=== PATIENT | female | born 1955 | race Caucasian/White ===

== ENCOUNTER 2020-11-06 15:11 | Observation (INO) ==
[2020-11-06 16:28] LABS: Basophils # (auto) 0.01 K/uL (0-0.2); Basophils % (auto) 0.1 %; Eosinophils # (auto) 0.11 K/uL (0-0.5); Hematocrit (blood only) 44.7 % (37-47); Immature Granulocytes # (auto) 0.02 K/uL (0.00-0.02); Immature Granulocytes % (auto) 0.2 %; Lymphocytes # (auto) 1.62 K/uL (1.2-3.4); Lymphocytes % (auto) 14.2 %; Mean Corpuscular Hemoglobin 31.4 pg (25-34); Mean Corpuscular Hgb Conc 33.6 g/dL (32-36); Mean Corpuscular Volume 93.5 fL (80-100); Monocytes # (auto) 0.63 K/uL (0.11-0.59); Monocytes % (auto) 5.5 %; Neutrophils # (auto) 9.01 K/uL (1.4-6.5); Platelet Count 275 K/uL (130-400); RDW Coefficient of Variation 13.2 % (11.5-14.5); RDW Standard Deviation 45.6 fL (36.4-46.3); Red Blood Count 4.78 M/uL (4.2-5.4)
[2020-11-06 16:46] LABS: Albumin Level 3.8 gm/dl (3.4-5.0); BUN Creatinine Ratio 24.4 (10-20); Creatinine Clr Calc Pharmacy 66.8 ml/min; Est GFR (African American) 109.5 ml/min; Est GFR (Non-African American) 94.5 ml/min
[2020-11-06 16:49] LABS: Albumin Globulin Ratio 1.1 (0.9-2); Bilirubin,Total 1.6 mg/dl (0.2-1); Globulin 3.6 gm/dl (2.5-4.0); Total Protein 7.4 gm/dl (6.4-8.2)
[2020-11-06] MEDS ORDERED: ONDANSETRON INJ 2 MG/ML 2 ML VIAL IV STA ×2 (17:19→20:22)
[2020-11-06] MEDS ORDERED: SODIUM CHLORIDE 0.9% 1000ML 1,000 ML IV ONE (17:24)
--- NOTE | 2020-11-06 17:24 | Emergency Department Note ---
Impression & Plan Nausea & vomiting, Epigastric abdominal pain ED Provider Note INFORMANT: Patient ED PROVIDER(S): Glenn Arthur MD CHIEF COMPLAINT: Abdominal pain PLAN: Disposition: Admitted Condition: Good Outpatient prescription management: none Referral: None MEDICAL DECISION MAKING: Patient presented to emergency room complaining of upper abdominal pain and nausea. She was hydrated. She was given Zofran. She was treated with IV Dilaudid. She did feel better with this but did require second dose. Patient had a mild leukocytosis and elevated bilirubin. Remainder of labs unremarkable. Twelve-lead ECG did show sinus bradycardia. No ischemia. She underwent CT imaging which raised some concerns about possible ileus versus early obstruction. The patient did have an episode of nausea and vomiting and was given a second dose of Zofran. Gallbladder ultrasound revealed sludge but no evidence of acute cholecystitis. Because of the findings on CT further management in the hospital was deemed appropriate. Consultation was made with Dr. Jaylon Massey of the [facility] service. Patient was evaluated in the ER for further management. Triage Nursing notes reviewed and agree them. Vital Signs: reviewed and remarkable for no significant abnormalities Differential diagnosis: biliary pathology, Appendicitis, ovarian cyst,infections, diverticulitis, UTI, obstruction, mesenteric ischemia, aortic pathology, inflammatory bowel disease, renal colic, PUD, pancreatitis, hernia, volvulus, constipation, as well as other pathologies. Diagnostics interpreted by me: ECG: Twelve-lead ECG reveals sinus bradycardia 57 bpm. No evidence of ST elevation or depression. No PACs or PVCs. Normal QRS and axis. Cardiac Monitoring: Cardiac monitoring ordered by me: The patient was placed on continuous cardiac monitoring and observed. It revealed a normal sinus rhythm at 62 beats per minute without ectopy or evidence of dysrhythmia. Imaging studies: CT imaging showed possible ileus/enteritis versus early SBO per radiology. Gallbladder ultrasound shows sludge without clear evidence of cholecystitis. HPI: The patient is a 65 year old female who presents to the Emergency Room with complaints of epigastric achy constant abdominal pain that radiates to her back. This started 3 days ago and is worsening. The patient also notes the following associated symptoms, nausea and vomiting. The patient has found no relieving factors. Current pain is rated as 7/10. Patient went to urgent care and was referred to the emergency department. Pt denies LOC, headache, fevers, chills, diaphoresis, visual changes, neck pain, chest pain, breathing difficulties, melena, hematochezia, urinary symptoms, numbness, weakness, lymphadenopathy, rash, or other complaints. ROS: See above HPI for pertinent positives & negatives. A total of 10 systems reviewed and were otherwise negative. PAST MEDICAL HISTORY:See Below , migraines PAST SURGICAL HISTORY:See Below, cervical spine surgery FAMILY HISTORY:See Below, CAD, CVA SOCIAL HISTORY:See Below, HOME MEDICATIONS:See Below ALLERGIES:See Below VITALS:See Below PHYSICAL EXAMINATION: GENERAL: Awake, alert, uncomfortable-appearing, in no distress HENT: Normocephalic, atraumatic. Oropharynx unremarkable. EYES: Normal conjunctiva. Sclera non-icteric. NECK: Inspection normal. Non-tender. Supple. No nuchal rigidity. FROM. No masses. RESPIRATORY: Clear to auscultation. No wheezes. No rales. Normal respiratory effort. CARDIAC: Normal rate. Normal rhythm. No murmurs. No rubs. Extremities warm and well perfused. Pulses equal. No JVD. GI: Soft, non-distended. Epigastric tenderness to palpation. No rebound or guarding. No masses. RECTAL: Deferred. MUSCULOSKELETAL: Atraumatic. Chest examination reveals no tenderness. The back is symmetrical on inspection without obvious abnormality. There is no CVA tenderness to palpation. No joint edema. LOWER EXTREMITIES: Calves are equal size bilaterally and non-tender. No edema. No discoloration. NEURO: Normal sensorium. No sensory or motor deficits noted. SKIN: No rash or jaundice noted. Glenn Arthur MD Past Med/Surg History Medical History (Updated 11/06/20 @ 17:21 by Glenn Arthur MD) Acute ITP 1993> DUE TO WBC BEING TOO LOW> WAS ON PREDNISONE FOR A LONG TIME> NOW RESOLVED Migraine OCCASIONAL Slow to wake up after anesthesia Surgical History Fusion of spine C3,4,5> FULL ROM PER PATIENT History of arthroscopy BILAT SHOULDERS History of carpal tunnel release +ulnar nerve Right (12/2019) History of colonoscopy History of tooth extraction WISDOM TEETH Family History Father Diabetes Other No family history of adverse response to anesthesia Social History Smoking Status: Never smoker Second Hand Exposure: No; Hx Alcohol Use: Yes Alcohol type: beer, wine and hard liquor Hx Substance Use: No Preferred Language: [place] Communication Ability: Effective Back Tender [place] Required: No Beliefs That Will Affect Care: None Current Living Situation: Spouse Feels Safe at Home: Yes Assistive Devices: Glasses Allergies Allergies Allergy/AdvReac Type Severity Reaction Status Date / Time No Known Allergies Allergy Verified 11/06/20 18:06 Home Meds Home Medications Medication Instructions Recorded Confirmed Excedrin Migraine 1 tab PO Q6H PRN 12/19/19 11/06/20 ibuprofen 400 mg PO TID PRN 12/19/19 11/06/20 Results & Data (ED) Vital Signs Vital Signs - 24 hr 11/06/20 15:15 11/06/20 17:22 11/06/20 17:25 Temperature 36.6 C Temperature Source Skin Pulse Rate 64 62 65 Pulse Rate from SpO2 Sensor 65 67 Pulse Rhythm Regular Pulse Strength Normal Respiratory Rate 20 20 22 Respiratory Effort / Characteristics Non-Labored Spontaneous Respiratory Depth Normal Respiratory Pattern Regular Blood Pressure 125/73 132/71 Blood Pressure Mean 90 91 Pulse Oximetry 98 99 99 Oxygen Delivery Method Room Air Sepsis Recent Fever Within 48 Hours No Sepsis New/Unexplained Change in Mental Status N/A Sepsis Action Taken by Nursing No Action Required 11/06/20 17:30 11/06/20 18:00 11/06/20 18:40 Temperature Temperature Source Pulse Rate 79 62 65 Pulse Rate from SpO2 Sensor 82 62 63 Pulse Rhythm Pulse Strength Respiratory Rate 24 20 20 Respiratory Effort / Characteristics Respiratory Depth Respiratory Pattern Blood Pressure 160/71 H 128/78 Blood Pressure Mean 100 94 Pulse Oximetry 100 100 96 Oxygen Delivery Method Sepsis Recent Fever Within 48 Hours Sepsis New/Unexplained Change in Mental Status Sepsis Action Taken by Nursing 11/06/20 18:41 11/06/20 18:42 11/06/20 19:00 Temperature Temperature Source Pulse Rate 68 59 L 60 Pulse Rate from SpO2 Sensor 68 61 59 L Pulse Rhythm Pulse Strength Respiratory Rate 15 20 19 Respiratory Effort / Characteristics Respiratory Depth Respiratory Pattern Blood Pressure 115/60 115/66 Blood Pressure Mean 78 82 Pulse Oximetry 98 98 96 Oxygen Delivery Method Sepsis Recent Fever Within 48 Hours Sepsis New/Unexplained Change in Mental Status Sepsis Action Taken by Nursing 11/06/20 19:01 11/06/20 19:30 11/06/20 19:31 Temperature Temperature Source Pulse Rate 62 66 60 Pulse Rate from SpO2 Sensor 62 65 59 L Pulse Rhythm Pulse Strength Respiratory Rate 20 21 19 Respiratory Effort / Characteristics Respiratory Depth Respiratory Pattern Blood Pressure 103/59 L Blood Pressure Mean 73 Pulse Oximetry 95 96 96 Oxygen Delivery Method Sepsis Recent Fever Within 48 Hours Sepsis New/Unexplained Change in Mental Status Sepsis Action Taken by Nursing 11/06/20 20:00 11/06/20 20:07 11/06/20 20:30 Temperature Temperature Source Pulse Rate 72 70 72 Pulse Rate from SpO2 Sensor 69 69 70 Pulse Rhythm Pulse Strength Respiratory Rate 15 21 22 Respiratory Effort / Characteristics Respiratory Depth Respiratory Pattern Blood Pressure 98/50 L 127/62 125/65 Blood Pressure Mean 66 83 85 Pulse Oximetry 95 94 95 Oxygen Delivery Method Sepsis Recent Fever Within 48 Hours Sepsis New/Unexplained Change in Mental Status Sepsis Action Taken by Nursing 11/06/20 21:00 11/06/20 21:01 11/06/20 21:30 Temperature Temperature Source Pulse Rate 59 L 64 55 L Pulse Rate from SpO2 Sensor 59 L 64 54 L Pulse Rhythm Pulse Strength Respiratory Rate 19 17 20 Respiratory Effort / Characteristics Respiratory Depth Respiratory Pattern Blood Pressure 100/58 L 97/55 L Blood Pressure Mean 72 69 Pulse Oximetry 96 96 96 Oxygen Delivery Method Sepsis Recent Fever Within 48 Hours Sepsis New/Unexplained Change in Mental Status Sepsis Action Taken by Nursing 11/06/20 22:05 Temperature Temperature Source Pulse Rate 52 L Pulse Rate from SpO2 Sensor 51 L Pulse Rhythm Pulse Strength Respiratory Rate 15 Respiratory Effort / Characteristics Respiratory Depth Respiratory Pattern Blood Pressure 100/54 L Blood Pressure Mean 69 Pulse Oximetry 97 Oxygen Delivery Method Sepsis Recent Fever Within 48 Hours Sepsis New/Unexplained Change in Mental Status Sepsis Action Taken by Nursing Laboratory Data Result diagrams: 11/06/20 16:03 11/06/20 16:03 Lab Results 11/06/20 11/06/20 11/06/20 Range/Units 16:03 16:03 16:03 WBC 11.40 H (4.8-10.8) K/uL RBC 4.78 (4.2-5.4) M/uL Hgb 15.0 (12.0-16.0) g/dL Hct 44.7 (37-47) % MCV 93.5 (80-100) fL MCH 31.4 (25-34) pg MCHC 33.6 (32-36) g/dL RDW Std Deviation 45.6 (36.4-46.3) fL RDW Coeff of Ronnie 13.2 (11.5-14.5) % Plt Count 275 (130-400) K/uL MPV 9.0 (7.4-10.4) fL Immature Gran % (Auto) 0.2 % Neut % (Auto) 79.0 % Lymph % (Auto) 14.2 % [place] % (Auto) 5.5 % Eos % (Auto) 1.0 % Baso % (Auto) 0.1 % Neut # (Auto) 9.01 H (1.4-6.5) K/uL Lymph # (Auto) 1.62 (1.2-3.4) K/uL [place] # (Auto) 0.63 H (0.11-0.59) K/uL Eos # (Auto) 0.11 (0-0.5) K/uL Baso # (Auto) 0.01 (0-0.2) K/uL Immature Gran # (Auto) 0.02 (0.00-0.02) K/uL Sodium 140 (136-145) mmol/L Potassium 4.0 (3.5-5.1) mmol/L Chloride 106 (98-107) mmol/L Carbon Dioxide 29 (21-32) mmol/L Anion Gap 5.0 (3-11) BUN 16 (7-18) mg/dl Creatinine 0.65 (0.6-1.2) mg/dl Est Cr Clr Drug Dosing 66.8 ml/min Est GFR ( Amer) 109.5 ml/min Est GFR (Non-Af Amer) 94.5 ml/min BUN/Creatinine Ratio 24.4 H (10-20) Glucose 96 (70-99) mg/dl Calcium 9.0 (8.5-10.1) mg/dl Total Bilirubin 1.6 H (0.2-1) mg/dl AST 22 (15-37) U/L ALT 20 (12-78) U/L Alkaline Phosphatase 81 (45-117) U/L Troponin I < 0.015 (0-0.045) ng/ml Total Protein 7.4 (6.4-8.2) gm/dl Albumin 3.8 (3.4-5.0) gm/dl Globulin 3.6 (2.5-4.0) gm/dl Albumin/Globulin Ratio 1.1 (0.9-2) Lipase 161 (73-393) U/L COVID-19 Eval Order SARS-CoV-2 (PCR) (Negative) 11/06/20 11/06/20 Range/Units 19:40 19:40 WBC (4.8-10.8) K/uL RBC (4.2-5.4) M/uL Hgb (12.0-16.0) g/dL Hct (37-47) % MCV (80-100) fL MCH (25-34) pg MCHC (32-36) g/dL RDW Std Deviation (36.4-46.3) fL RDW Coeff of Ronnie (11.5-14.5) % Plt Count (130-400) K/uL MPV (7.4-10.4) fL Immature Gran % (Auto) % Neut % (Auto) % Lymph % (Auto) % [place] % (Auto) % Eos % (Auto) % Baso % (Auto) % Neut # (Auto) (1.4-6.5) K/uL Lymph # (Auto) (1.2-3.4) K/uL [place] # (Auto) (0.11-0.59) K/uL Eos # (Auto) (0-0.5) K/uL Baso # (Auto) (0-0.2) K/uL Immature Gran # (Auto) (0.00-0.02) K/uL Sodium (136-145) mmol/L Potassium (3.5-5.1) mmol/L Chloride (98-107) mmol/L Carbon Dioxide (21-32) mmol/L Anion Gap (3-11) BUN (7-18) mg/dl Creatinine (0.6-1.2) mg/dl Est Cr Clr Drug Dosing ml/min Est GFR ( Amer) ml/min Est GFR (Non-Af Amer) ml/min BUN/Creatinine Ratio (10-20) Glucose (70-99) mg/dl Calcium (8.5-10.1) mg/dl Total Bilirubin (0.2-1) mg/dl AST (15-37) U/L ALT (12-78) U/L Alkaline Phosphatase (45-117) U/L Troponin I (0-0.045) ng/ml Total Protein (6.4-8.2) gm/dl Albumin (3.4-5.0) gm/dl Globulin (2.5-4.0) gm/dl Albumin/Globulin Ratio (0.9-2) Lipase (73-393) U/L COVID-19 Eval Order Covid19 at [facility] SARS-CoV-2 (PCR) NEGATIVE (Negative) Administered Medications Hydromorphone HCl (Hydromorphone Inj 0.5 Mg/0.5 Ml Syr) 0.5 mg IV Q15M PRN PRN Reason: Pain Stop: 11/20/20 17:18 Last Admin: 11/06/20 20:23 Dose: 0.5 mg Documented by: [id number] Admin: 11/06/20 17:59 Dose: 0.5 mg Documented by: [id number] Admin: 11/06/20 17:27 Dose: 0.5 mg Documented by: [id number] Discontinued Medications Sodium Chloride (Nss 1000ml) 1,000 mls @ 999 mls/hr IV .Q1H1M ONE Stop: 11/06/20 18:24 Last Infusion: 11/06/20 18:41 Dose: 0 mls/hr Documented by: [id number] Admin: 11/06/20 17:27 Dose: 999 mls/hr Documented by: [id number] Ioversol (Optiray 320 100ml) 94 ml IV ONCE ONE Stop: 11/06/20 17:46 Last Admin: 11/06/20 17:45 Dose: 94 ml Documented by: [id number] Ondansetron HCl (Ondansetron Inj 2 Mg/Ml 2 Ml Vial) 4 mg IV NOW STA Stop: 11/06/20 17:20 Last Admin: 11/06/20 17:27 Dose: 4 mg Documented by: [id number] Ondansetron HCl (Ondansetron Inj 2 Mg/Ml 2 Ml Vial) Confirm Administered Dose 4 mg .ROUTE .STK-MED ONE Stop: 11/06/20 20:20 Last Admin: 11/06/20 20:21 Dose: 4 mg Documented by: [id number] Ondansetron HCl (Ondansetron Inj 2 Mg/Ml 2 Ml Vial) 4 mg IV NOW STA Stop: 11/06/20 20:23 Last Admin: 11/06/20 20:27 Dose: Not Given Documented by: [id number] Imaging Data Radiologist's Impression: Gallbladder Ultrasound 11/06/20 17:20 US gallbladder CLINICAL HISTORY: 65 years-old Female presenting with nausea, vomiting, upper abd pain. TECHNIQUE: Real-time grayscale ultrasound imaging of the upper abdomen was performed for a focused evaluation at the site of clinical concern. COMPARISON: None. FINDINGS: Liver: Normal parenchyma without evidence of focal lesions or intrahepatic biliary dilatation. Gallbladder is fluid-filled with trace amount of sludge and no pericholecystic inflammatory changes. Common bile duct is measuring 0.6 cm in diameter. Pancreas appear normal. Pancreatic duct is measuring 0.2 cm in diameter. Right kidney shows normal appearance without evidence of hydronephrosis. 1.2 cm anechoic lesion is seen within right kidney representing small cyst. IMPRESSION: 1. Possibly minimal sludge within gallbladder. No evidence of cholecystitis. 2. Small right renal cyst. ACT 112: Negative or not required by law. Electronically signed by: Hattie Lambert DO 11/06/2020 7:58 PM Abdomen/Pelvis CT 11/06/20 17:24 CT abd pelvis IV con only CLINICAL HISTORY: mid and epigastric abd pain COMPARISON STUDY: None. TECHNIQUE: A dose lowering technique was utilized adhering to the principles of ALARA. CT DOSE: 258.89 mGy.cm FINDINGS: Lower chest: Limited evaluation of lung bases shows no evidence of acute abnormalities.. Liver: The contrast-enhanced liver is normal in size, contour, and attenuation. There is no intrahepatic biliary ductal dilatation. The hepatic veins and portal veins are patent. Gallbladder: Unremarkable. Spleen: Normal in size and attenuation. Pancreas: Unremarkable. Adrenal glands: Unremarkable. Kidneys: There is symmetric renal cortical enhancement. The kidneys are normal in size without hydronephrosis.1.3 cm right renal cyst is seen. Pelvic viscera: The bladder, and pelvic viscera are unremarkable. Bowel: Few loops of small bowel within mid abdomen and left upper quadrant are within upper limits of normal, fluid-filled and show prominent diffuse mucosal enhancement which might represent enteritis or developing small bowel obstruction however transition zone is not seen at this time. Distal loops of small bowel are fluid-filled and nondilated. Appendix is nondilated. Moderate stool burden is seen within colonic loops. Peritoneum: There is no intraperitoneal free air or abdominal ascites. Vasculature: The abdominal aorta is normal in course and caliber. Adenopathy: None. Skeletal structures: Minimal degenerative changes of the spine. Dense breast tissue is seen bilaterally IMPRESSION: 1. Few loops of small bowel within upper abdomen and left upper quadrant are within upper limits of normal, fluid-filled with prominent mucosal enhancement. Differential diagnosis include diarrheal state, enteritis, developing small bowel obstruction or ileus. No transitional zone is seen. If there is clinical suspicion for small bowel obstruction, follow-up evaluation with KUB is suggested. 2. The rest of findings as detailed above. ACT 112: Negative or not required by law. The above report was generated using voice recognition software. It may contain grammatical, syntax or spelling errors. Electronically signed by: Hattie Lambert DO 11/06/2020 6:58 PM Discharge Plan Visit Data Chief Complaint: Abdominal Pain Stated Complaint: NAUSEA, TIREDNESS, UPPER ABDOMINAL PAIN ED Provider: Glenn Arthur Discharge Problem: Nausea & vomiting, Epigastric abdominal pain Forms Stand Alone Forms: [facility] Prescriptions Prescriptions: No Action ibuprofen 400 mg Tablet 400 mg PO TID PRN (Reason: Pain) RF: 0 Excedrin Migraine 250-250-65 mg Tablet 1 tab PO Q6H PRN (Reason: Pain) RF: 0
[2020-11-06] MEDS: HYDROmorphone INJ 0.5 MG/0.5 ML SYR IV PRN ×3 (17:27→20:23)
[2020-11-06] MEDS ORDERED: OPTIRAY 320 100ml IV ONE (17:45)
--- NOTE | 2020-11-06 18:59 | CT Scan Report ---
CT abd pelvis IV con only CLINICAL HISTORY: mid and epigastric abd pain COMPARISON STUDY: None. TECHNIQUE: A dose lowering technique was utilized adhering to the principles of ALARA. CT DOSE: 258.89 mGy.cm FINDINGS: Lower chest: Limited evaluation of lung bases shows no evidence of acute abnormalities.. Liver: The contrast-enhanced liver is normal in size, contour, and attenuation. There is no intrahepa tic biliary ductal dilatation. The hepatic veins and portal veins are patent. Gallbladder: Unremarkable. Spleen: Normal in size and attenuation. Pancreas: Unremarkable. Adrenal glands: Unremarkable. Kidneys: There is symmetric renal cortical enhancement. The kidneys are normal in size without hydron ephrosis.1.3 cm right renal cyst is seen. Pelvic viscera: The bladder, and pelvic viscera are unremarkable. Bowel: Few loops of small bowel within mid abdomen and left upper quadrant are within upper limits of normal, fluid-filled and show prominent diffuse mucosal enhancement which might represent enteritis or developing small bowel obstruction however transition zone is not seen at this time. Distal loops of small bowel are fluid-filled and nondilated. Appendix is nondilated. Moderate stool b urden is seen within colonic loops. Peritoneum: There is no intraperitoneal free air or abdominal ascites. Vasculature: The abdominal aorta is normal in course and caliber. Adenopathy: None. Skeletal structures: Minimal degenerative changes of the spine. Dense breast tissue is seen bilateral ly IMPRESSION: 1. Few loops of small bowel within upper abdomen and left upper quadrant are within upper limits of normal, fluid-filled with prominent mucosal enhancement. Differential diagnosis include diarrheal sta te, enteritis, developing small bowel obstruction or ileus. No transitional zone is seen. If there is clinical suspicion for small bowel obstruction, follow-up evaluation with KUB is suggested. 2. The rest of findings as detailed above. ACT 112: Negative or not required by law. The above report was generated using voice recognition software. It may contain grammatical, syntax o r spelling errors. Electronically signed by: Hattie Lambert DO 11/06/2020 6:58 PM
--- NOTE | 2020-11-06 19:59 | Ultrasound Report ---
US gallbladder CLINICAL HISTORY: 65 years-old Female presenting with nausea, vomiting, upper abd pain. TECHNIQUE: Real-time grayscale ultrasound imaging of the upper abdomen was performed for a focused ev aluation at the site of clinical concern. COMPARISON: None. FINDINGS: Liver: Normal parenchyma without evidence of focal lesions or intrahepatic biliary dilatation. Gallbladder is fluid-filled with trace amount of sludge and no pericholecystic inflammatory changes. Common bile duct is measuring 0.6 cm in diameter. Pancreas appear normal. Pancreatic duct is measuring 0.2 cm in diameter. Right kidney shows normal appearance without evidence of hydronephrosis. 1.2 cm anechoic lesion is se en within right kidney representing small cyst. IMPRESSION: 1. Possibly minimal sludge within gallbladder. No evidence of cholecystitis. 2. Small right renal cyst. ACT 112: Negative or not required by law. Electronically signed by: Hattie Lambert DO 11/06/2020 7:58 PM
[2020-11-06] MEDS ORDERED: ONDANSETRON INJ 2 MG/ML 2 ML VIAL ONE (20:19)
--- NOTE | 2020-11-06 22:30 | History & Physical Report ---
Date of Service November 06, 2020 Assessment & Plan (1) Epigastric abdominal pain: Mrs. Izaguirre is a 65 yo woman who presented with epigastric pain and nausea/vomiting. - etiology is uncertain - differential includes a developing ileus/SBO vs. viral enteritis vs. PUD. - Enteritis less likely given no associated diarrhea. - Risk factor for PUD is recent, regular NSAID use, however patient denies any sensation of heartburn. - Lipase not elevated, making pancreatitis unlikely. - patient has no risk factors for a mechanical obstruction, making a functional source more likely - keep patient NPO. Continue mIVF. Zofran prn for nausea. Tylenol/morphine ordered for pain. - follow/serial exams (2) Total bilirubin, elevated: - total level at 1.6; direct level not obtained - no jaundice on exam - normal CBC, ALT/AST, and Alk phos - likely secondary to gilberts DVT ppx: Lovenox Diet: NPO, advance as tolerated Dispo: Med/surg COde: Full History of Present Illness Primary Care Provider: Lisa Moise MD Mrs. Izaguirre is a 65 yo woman who came to the ED with epigastric pain that began 3 days ago and progressed since onset. The pain wraps about to the back; it worsens when she bends forward. She has associated nausea and vomiting - however no bloody emesis. No fevers or diarrhea. She says her BMs have never been regular, but no acute deviations from baseline. She denies a sensation of heartburn but has been using Advil 200mg, 3 tabs, daily for the last week (for knee pain). The pain/nausea do not seem to be related to meal consumption. She says a similar (yet less severe) phenomenon has affected at various times in the past - all have self resolved. She cannot seem to figure out the cause/trigger. No sick contacts. She denies any surgical history to the abdomen or pelvic area. Social Hx: only occasional etoh use. non-smoker No personal or family Hx of GI disorders. No previous radiation to the bowel. She is not on any opioids or anticholinergics. In the ED she was afebrile with a normal HR. Her WBC was mildly elevated to 11, hgb normal. Electrolytes, kidney function were normal. Liver enzymes not elevated. Trop undetectable. Lipase not elevated. A/P CT showed no definitive pathology - bowel was within a normal appearance. Differential diagnosis include enteritis, developing small bowel obstruction or ileus, although no transitional zone was noted; no hernias. Gallbladder US showed sludge, but no stones; incidentally noted was a right renal cyst. She was given 1 liter of NSS, a dose of zofran and dilaudid. 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> WAS ON PREDNISONE FOR A LONG TIME> NOW RESOLVED Migraine OCCASIONAL Slow to wake up after anesthesia Surgical History Fusion of spine C3,4,5> FULL ROM PER PATIENT History of arthroscopy BILAT SHOULDERS History of carpal tunnel release +ulnar nerve Right (12/2019) History of colonoscopy History of tooth extraction WISDOM TEETH Family History Father Diabetes Other No family history of adverse response to anesthesia Social History Smoking Status: Never smoker Second Hand Exposure: No; Do You Dip or Chew Tobacco: No; Tobacco Cessation Education Requested by Patient: No Hx Alcohol Use: Yes Alcohol type: wine and hard liquor Hx Substance Use: No Preferred Language: [place] Communication Ability: Effective Travel Money Advisor Required: No Beliefs That Will Affect Care: None Current Living Situation: Spouse Other Information That Helps Us Care for You: No Feels Safe at Home: Yes Safety Concerns: Feels Safe At This Time Assistive Devices: Glasses Review of Systems Gastrointestinal: + abdominal pain, + nausea and + vomiting; no heartburn Physical Exam Constitutional: WD/WN, vitals as above + ill appearing and cooperative Eyes: + anicteric sclerae ENMT: external ear and nose normal, oropharynx normal Neck: normal visual inspection and trachea midline Respiratory: normal respiratory effort, lungs clear to auscultation Cardiovascular: RRR, no murmur, no edema Heart Sounds: normal S1 and normal S2 Gastrointestinal (Abdomen): Inspection/Auscultation: normal bowel sounds; abdomen not distended Percussion/Palpation: + abdomen tender (diffusely ) and abdomen soft; no guarding Skin: no rashes, warm and dry Neurologic: moves all extremities Psychiatric: A+Ox3, euthymic affect Results & Data Results & Data ([facility]) Vital Signs (Past 12 Hours) Vital Signs Temp Pulse Resp BP Pulse Ox 11/06/20 22:05 52 L 15 100/54 L 97 11/06/20 21:30 55 L 20 97/55 L 96 11/06/20 21:01 64 17 96 11/06/20 21:00 59 L 19 100/58 L 96 11/06/20 20:30 72 22 125/65 95 11/06/20 20:07 70 21 127/62 94 11/06/20 20:00 72 15 98/50 L 95 11/06/20 19:31 60 19 96 11/06/20 19:30 66 21 103/59 L 96 11/06/20 19:01 62 20 95 11/06/20 19:00 60 19 115/66 96 11/06/20 18:42 59 L 20 98 11/06/20 18:41 68 15 115/60 98 11/06/20 18:40 65 20 96 11/06/20 18:00 62 20 128/78 100 11/06/20 17:30 79 24 160/71 H 100 11/06/20 17:25 65 22 99 11/06/20 17:22 62 20 132/71 99 11/06/20 15:15 36.6 C 64 20 125/73 98 Supervising Physician Co-Signing Physician Notes Attending addendum: I have physically seen this patient, have supervised the medical residents activities, and agree with the H&P unless as otherwise noted. Assessment and Plan: Epigastric abdominal pain- CT with readings suggesting diarrhea versus enteritis versus ileus versus SBO Treat conservatively N.p.o. IV fluids Zofran 4 mg IV every 6 hours as needed Famotidine 20 mg IV every 12 hours Hyperbilirubinemia- Gilbert's syndrome Remaining orders and notations as noted Resident Activity Tracking Resident Involvement: Resident Care Provided Care Provided: Adult [facility]
[2020-11-06] MEDS ORDERED: ONDANSETRON INJ 2 MG/ML 2 ML VIAL IV PRN (23:03)
[2020-11-06] MEDS ORDERED: ACETAMINOPHEN 1000 MG/100 ML IV IV PRN (23:03)
[2020-11-06] MEDS: SODIUM CHLORIDE 0.9% 1000ML 1,000 ML IV SCH (23:18)
[2020-11-06] MEDS ORDERED: HYDROmorphone INJ 0.5 MG/0.5 ML SYR IV PRN (23:30)
[2020-11-07 08:18] LABS: Basophils # (auto) 0.01 K/uL (0-0.2); Basophils % (auto) 0.2 %; Eosinophils # (auto) 0.09 K/uL (0-0.5); Eosinophils % (auto) 1.4 %; Hematocrit (blood only) 38.8 % (37-47); Hemoglobin 12.4 g/dL (12.0-16.0); Immature Granulocytes # (auto) 0.01 K/uL (0.00-0.02); Immature Granulocytes % (auto) 0.2 %; Lymphocytes % (auto) 29.7 %; Mean Corpuscular Hemoglobin 29.7 pg (25-34); Mean Platelet Volume 9.2 fL (7.4-10.4); Monocytes # (auto) 0.53 K/uL (0.11-0.59); Monocytes % (auto) 8.3 %; Neutrophils # (auto) 3.85 K/uL (1.4-6.5); Neutrophils % (auto) 60.2 %; Platelet Count 224 K/uL (130-400); RDW Coefficient of Variation 13.6 % (11.5-14.5); Red Blood Count 4.17 M/uL (4.2-5.4); White Blood Count 6.39 K/uL (4.8-10.8)
[2020-11-07] MEDS: SODIUM CHLORIDE 0.9% 1000ML 1,000 ML IV SCH (08:34)
[2020-11-07 08:57] LABS: BUN Creatinine Ratio 25.9 (10-20); Calcium 7.6 mg/dl (8.5-10.1); Creatinine Clr Calc Pharmacy 73.6 ml/min; Est GFR (African American) 113.1 ml/min; Est GFR (Non-African American) 97.5 ml/min
[2020-11-07] MEDS ORDERED: ENOXAPARIN INJ 40 MG/0.4 ML SYR SQ SCH (09:00)
--- NOTE | 2020-11-07 10:06 | Electrocardiogram Report ---
Test Reason : Blood Pressure : / mmHG Vent. Rate : 057 BPM Atrial Rate : 057 BPM P-R Int : 148 ms QRS Dur : 078 ms QT Int : 430 ms P-R-T Axes : 061 060 044 degrees QTc Int : 418 ms Sinus bradycardia Possible Left atrial enlargement Borderline ECG No previous ECGs available Confirmed by Wu Garrett ([id number]) on 11/07/2020 10:06:03 AM Referred By: REFERRED SELF Confirmed By:Wu Garrett
[2020-11-07] MEDS ORDERED: POLYETHYLENE (MIRALAX) 17 GM PACK PO ONE (14:37)
[2020-11-07] MEDS ORDERED: KETOROLAC 30 MG/ML VIAL IV ONE (14:38)
[2020-11-07] MEDS ORDERED: POLYETHYLENE (MIRALAX) 17 GM PACK PO SCH (14:45)
[2020-11-07 15:45] VITALS: BP 101/61; PULSE 56; TEMP 97.7; O2SAT 97
--- NOTE | 2020-11-07 18:04 | Discharge Summary ---
Date of Service November 07, 2020 Admission HPI Per Admitting Provider Mrs. Izaguirre is a 65 yo woman who came to the ED with epigastric pain that began 3 days ago and progressed since onset. The pain wraps about to the back; it worsens when she bends forward. She has associated nausea and vomiting - however no bloody emesis. No fevers or diarrhea. She says her BMs have never been regular, but no acute deviations from baseline. She denies a sensation of heartburn but has been using Advil 200mg, 3 tabs, daily for the last week (for knee pain). The pain/nausea do not seem to be related to meal consumption. She says a similar (yet less severe) phenomenon has affected at various times in the past - all have self resolved. She cannot seem to figure out the cause/trigger. No sick contacts. She denies any surgical history to the abdomen or pelvic area. Social Hx: only occasional etoh use. non-smoker No personal or family Hx of GI disorders. No previous radiation to the bowel. She is not on any opioids or anticholinergics. In the ED she was afebrile with a normal HR. Her WBC was mildly elevated to 11, hgb normal. Electrolytes, kidney function were normal. Liver enzymes not elevated. Trop undetectable. Lipase not elevated. A/P CT showed no definitive pathology - bowel was within a normal appearance. Differential diagnosis include enteritis, developing small bowel obstruction or ileus, although no transitional zone was noted; no hernias. Gallbladder US showed sludge, but no stones; incidentally noted was a right renal cyst. She was given 1 liter of NSS, a dose of zofran and dilaudid. Principal Diagnosis Abdominal pain most likely due to constipation Discharge Exam In general she is awake and alert pleasant no distress. HEENT normocephalic atraumatic mucous membranes moist. Breathing unlabored no accessory muscle use good effort. Abdomen is soft may be very mildly distended nontender no guarding no rebound no rigidity. Extremities show no cyanosis or clubbing. Skin shows no rashes no pallor or icterus. Discharge Data Allergies Allergy/AdvReac Type Severity Reaction Status Date / Time No Known Allergies Allergy Verified 11/06/20 18:06 Consultations 11/06/20 21:27 ED Decision to Admit Stat Ordered Studies 11/06/20 17:20 US gallbladder Stat 11/06/20 17:24 CT abd pelvis IV con only Stat Hospital Course (1) Epigastric abdominal pain: While initially the differential was broad, on review of her symptoms and CT scan, constipation seems to be the most likely working diagnosisit would certainly fit the clinical picture the best. Was given 5 doses of MiraLAX here in the hospital, plan discussed, patient felt that as long as she was able to eat and drink okay she would be more comfortable at homewe felt this was quite reasonable too. Set everything up for discharge to home, discussed dosing of MiraLAXsee discharge instructions. Follow-up PCP next week. Further evaluation if her symptoms do not resolve. Somewhat long-term bowel regimen to try to help reset her stretch recoil mechanism of her enteric nervous system. (2) Nausea & vomiting: See above. Resolved (3) Total bilirubin, elevated: Mild. Does not seem to fit with her clinical picture. Outpatient follow- up. Possibly chronic. Total Time Total Time Spent Total Time Spent (In Minutes): >30 Discharge Plan Discharge Items Patient Disposition: Home - Self-Care Reason For Visit: ABDOMINAL PAIN, VOMITING Discharge Diagnosis: abdominal pain - most likely related to constipation - see below Activity: Resume your previous activity Non-emergency contact: Primary Care Provider Call non-emergency contact if: you have any medication questions and your symptoms worsen Follow-up/Referrals: Lisa Moise MD [Primary Care Provider] - Diet: Regular Addtl Attending Provider Instructions: abdominal pain -putting together your story, physical exam, and CT scan; the most likely diagnosis driving your pain is chronic constipation. when you look at the CT, there is a lot of stool basically backed up all throughout your colon. because of this, even when you're having bowel movements, there's still going to be a significant "traffic jam" left behind. our GI tract sends a wave of contraction down every 3-5 minutes, and so then, when the wave of contraction hits a part of the stool where things are backed up, it can be easy for that to create "random" but quite intense pain. -the main way to treat this will be to get your bowels moving. while there are a lot of different ways to do this, i generally find the simplest to be with miralax -a potent stool softener, miralax (polyethylene glycol) basically just pulls a lot of water into your intestines. because there is more water there, it softens the stool and makes it easier to push forward; and because there is more water in your GI tract, the "stretch-recoil" circuit of our GI tract nervous system (called the enteric nervous system) also gets activated more -it can sometimes take a good deal of miralax to first get things moving. for reference, a single dose (17 grams) is basically a stool softener dose at the best for most people, while at the other end of the spectrum, 12 doses in rapid succession is about what you would do as a bowel prep for a colonoscopy. to help get things moving, we've given you 5 doses here in the hospital ---> moving forward, you'll want to first try to get things "cleaned out" and then work to keep things moving more regularly. as far as "cleaning out" -- see how you respond to the five doses you've gotten -- there's a pretty good chance that this will really start to get your bowels moving and you won't need to continue with more "big" dosing. if you've had a lot of bowel movements, or especially if you've had a significant amount of stool out, then you won't need further "big" end of dosing. if that doesn't happen (or if you just have watery diarrhea, suggesting that the miralax has only really moved watery stool around the "logjam") then tomorrow we'd recommend another 3-5 doses. -once things are more cleared out, most people only need 1-2 doses a day to keep their bowels moving more. some days may be different than others, however, and an easy way to gauge things is to "dose today based on yesterday's bowel movement" (ie if you took one dose yesterday, and didn't really have much of an effective bowel movement, then today you would take 2-3 total doses). once you're past the "cleanout" phase of things, we'd recommend that if you were to need more than 5 doses in a day, you should give the office a call for guidance (not that it's a certain sign of a problem, but it would be a little odd to need that much once we've gotten you past the first part of this) ----> once things are moving more regularly, we'll want to see if you're able to "reset" your stretch-recoil. often, when our intestines are chronically stretched, they get used to being more stretched, which then lets the problem of constipation compound on itself. if we have your bowels moving regularly with softer stool for a while, then slowly over time (months, usually) you can potent ially get things more reset to a less backed-up "normal" and maybe not need the miralax anymore. that's not the case with everyone, though, and because miralax is just a potent stool softener, it is safe for steward/stewardess club car use *please note* -- i had to put something on the directions for the miralax Rx - so it says "twice a day" -- please follow the above instructions for more of a "sliding scale dosing" -- but we're not really able to put that on an Rx very well. ---> as we discussed, this is a "work in progress" until you're feeling all better. to that end, please follow up in the office with Dr Moise next week so she can follow how you're doing and help troubleshoot if things aren't going as well as we hope. Pending Studies at Discharge: No Stand-Alone Forms: My [facility] [employer], Smoking Cessation Medications and DC Order Prescriptions: New polyethylene glycol 3350 [ClearLax] 17 gram powder in packet 17 g PO BID Qty: 100 RF: 0 Continued ibuprofen 400 mg Tablet 400 mg PO TID PRN (Reason: Pain) RF: 0 Excedrin Migraine 250-250-65 mg Tablet 1 tab PO Q6H PRN (Reason: Pain) RF: 0 Discharge Orders: Discharge Order (Routine); Ordered 11/07/20 Ordered By: Gagan Lu Admission Data Admit Date/Time: 11/06/20 21:13 Attending Provider: Gagan Lu Admit Provider: Martha Mehta Primary Care Provider: Lisa Moise Other Providers: Jaylon Massey ; Lisa Moise Coding Level of Care Code 21929 OBS Care - Discharge Diagnoses Epigastric abdominal pain R10.13 Nausea & vomiting R11.2 Total bilirubin, elevated R17
--- NOTE | 2020-11-07 19:51 | Billing Data ---
Date of Service November 07, 2020 Coding Level of Care Code 38150 OBS Care - Level 3
== END 2020-11-07 20:45 | disposition home or self-care (01) ==
LOC: ED 15:11 → 3N 15:11 → SUATTDRO 21:13 → 3N 22:20

== ENCOUNTER 2021-09-16 05:12 | Observation (INO) ==
--- NOTE | 2021-08-19 16:15 | PAT Medication Instructions ---
Medication Instructions Date of Service August 19, 2021 Home Medications Excedrin Migraine) 1 tab PO Q6H PRN ibuprofen 400 mg tablet 400 mg PO TID PRN polyethylene glycol 3350 17 gram oral powder packet (ClearLax) 17 g PO DAILY ASK your surgeon for instructions Excedrin Migraine) 1 tab PO Q6H PRN ibuprofen 400 mg tablet 400 mg PO TID PRN DO NOT take the morning of surgery polyethylene glycol 3350 17 gram oral powder packet (ClearLax) 17 g PO DAILY Other Notes If you have any questions please call us at [phone] or [phone] or [phone] or [phone]
--- NOTE | 2021-08-21 14:55 | Anesthesiology Consultation ---
Date of Service August 21, 2021 Assessment & Plan (1) Encounter for pre-operative examination: Chart Review Chart Review: Acceptable Risk for Surgery (pending surgeon ordered PCP clearance, response regarding CXR results and preop Covid testing results ) and Patient seen in Pre Admission Testing - Awaiting surgeon ordered PCP clearance scheduled 08/25/21 (will send note to PCP regarding CXR findings and if further work up needed prior to surgery) Per PAT appt on 08/21/21, patient denies any recent travel or large group activities. No known Covid positive exposures or Covid related symptoms. No known Covid infection in the past 90 days. Pt is fully vaccinated for Covid Preop Covid testing scheduled 09/12/21= will await results. Educated on importance of self quarantining, social distancing and wearing mask in public for the patient one week prior to surgery and after Covid testing done Teaching & Discussion Pre-Anesthesia Teaching/Discussion Notes: Instructed NPO after midnight before surgery,except medications with 15 cc of water. Medication instructions provided according to the PAT guidelines. History Surgery Operation Date: 09/16/21 07:00 Proposed Procedures p Left Total Knee Arthroplasty - Serafin Alessia Rivas MD Height/Weight Height: 5 ft 2 in Weight: 54.9 kg Allergies Allergy/AdvReac Type Severity Reaction Status Date / Time No Known Allergies Allergy Verified 08/18/21 10:59 Medications Home Medications Medication Instructions Recorded Confirmed Last Taken pvmmsax-[id number]-cudsfctd 250 1 tab PO Q6H PRN 12/19/19 08/18/21 12/21/19 mg-250 mg-65 mg tablet (Excedrin Migraine) ibuprofen 400 mg tablet 400 mg PO TID PRN 12/19/19 08/18/21 12/21/19 polyethylene glycol 3350 17 gram 17 g PO DAILY 08/18/21 08/18/21 Unknown oral powder packet (ClearLax) Past Medical History Medical History 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 BEING TOO LOW> WAS ON PREDNISONE FOR A LONG TIME> NOW RESOLVED Migraine Exercise / Class Metabolic Activity II 4-5 Yardwork/Stairs/Walk up hill (one flight of stairs - no chest pain or SOB ) Past Family History Family History Father Diabetes Other No family history of adverse response to anesthesia Past Surgical History Surgical History Fusion of spine cervical> FULL ROM PER PATIENT H/O arthroscopic knee surgery left History of arthroscopy RT/LEFT SHOULDERS History of carpal tunnel release +ulnar nerve release Right (12/2019) History of colonoscopy Slow to wake up after anesthesia [place] teeth removed Past Anesthesia History No Hx of Anesthesia Complications (with exception to slow to wake - no hx of reintubation or ICU stay- recent surgeries- no issues ) and No Family Hx of Anesthesia Complications History of PONV No Hx of PONV and No Hx of Motion Sickness Social History Smoking Status: Never smoker Hx Alcohol Use: Yes Alcohol type: beer and wine alcohol intake frequency: a few times a week Hx Substance Use: No substance use type: does not use Review of Systems Patient denies chest pain, shortness of breath, dyspnea on exertion, reflux, cough, wheezing, palpitations. No hx of seizures, stroke, [place], apnea/snoring. No hx of blood clots or blood talley sfusions Physical Exam Vital Signs VITALS BP 102/62 (manually- baseline per patient- denies syncope or dizziness) P 66 TEMP 98.2 SP02 97% RESP 16 Constitutional no acute distress ENMT Mouth: no TMJ clicking Thyromental Distance: > or= 3.5 Finger Breadths (3.5) Mallampati Class: I Crowns to molars Neck + limited neck extension (mild ) Respiratory normal respiratory effort; no respiratory distress Auscultation: lungs clear to auscultation bilaterally; no wheezes Cardiovascular Rate/Rhythm: regular rate and regular rhythm Heart Sounds: no murmur Vessels: no carotid bruit Musculoskeletal Spine: no pain with cervical ROM Extremities: extremities normal to inspection Psychiatric Orientation: alert Lab Results Anesthesia Preop Results Results Anesthesia Widget: WBC 6.52 K/uL (4.8-10.8) 08/21/21 Hgb 13.5 g/dL (12.0-16.0) 08/21/21 Hct 41.3 % (37-47) 08/21/21 Plt 248 K/uL (130-400) 08/21/21 Na 139 mmol/L (136-145) 08/21/21 K 4.0 mmol/L (3.5-5.1) 08/21/21 Cl 107 mmol/L (98-107) 08/21/21 CO2 27 mmol/L (21-32) 08/21/21 BUN 18 mg/dl (6-23) 08/21/21 Creat 0.62 mg/dl (0.6-1.2) 08/21/21 Glucose Level 91 mg/dl (70-99(Fasting)) 08/21/21 PT 10.5 Seconds (9.0-12.0) 08/21/21 PTT 23.9 Seconds (21.0-31.0) 08/21/21 INR 1.0 (0.9-1.1) 08/21/21 Urine Color Yellow 08/21/21 Urine Appearance Clear (Clear) 08/21/21 Urine pH 6.5 (4.5-7.5) 08/21/21 Urine Specific [place] 1.007 (1.000-1.030) 08/21/21 Urine Protein Negative (Negative) 08/21/21 Urine Glucose (UA) Negative (Negative) 08/21/21 Urine Ketones Negative (Negative) 08/21/21 Urine Blood Trace (Negative) H 08/21/21 Urine Nitrite Negative (Negative) 08/21/21 Urine Bilirubin Negative (Negative) 08/21/21 Urine Urobilinogen Negative (Negative) 08/21/21 Urine Leukocyte Esterase Negative (Negative) 08/21/21 Urine WBC (Auto) 0 /hpf (0-5) 08/21/21 Urine RBC (Auto) 0-4 /hpf (0-4) 08/21/21 Urine Hyaline Casts (Auto) 1-5 /lpf (0-5) 08/21/21 Urine Epithelial Cells (Auto) 0-5 /lpf (0-5) 08/21/21 Urine Bacteria (Auto) Negative (Negative) 08/21/21 Blood Type O Positive 08/21/21 Antibody Screen NEGATIVE 08/21/21 Testing Electrocardiogram Date: 08/21/21 Findings: + NSR @ (63bpm ) Normal EKG per cardio Chest X-Ray Date: 08/21/21 FINDINGS: There is a 1 cm nodular density within the right lung apex. The left lung is clear. The heart is normal in size. No pleural fusions. No pneumothorax. IMPRESSION: A 1 cm nodular density within the right lung apex. This is low suspicion and may represent scarring. However, follow-up dedicated noncontrast chest CT recommended for further evaluation.
--- NOTE | 2021-09-15 08:00 | History & Physical Report ---
Date of Service September 15, 2021 Assessment & Plan (1) Left knee DJD: Plan: Postoperative prescription for oxycodone will be provided at discharge from the hospital. Anticipate discharge to home with home health services. The patient is aware of the COVID-19 risks associated with surgery. She is currently asymptomatic of any COVID-19 symptoms. She will obtain nasal swab testing 3 days prior to surgery. PDMP was checked and there are no concerning findings. Postop followup appointment has been made for 09/30 at 11:15 a.m. Outpatient PT appointment has been made for 10/01 at 10:30 a.m. with [facility]. The patient already has access to a cane. She was given a prescription for a rolling walker. She will obtain medical clearance from her PCP, Dr. Vasquez. History of Present Illness Chief Complaint: Left knee pain Primary Care Provider: Lisa Moise MD This 66-year-old female presents for her preoperative history and physical. She is scheduled to undergo a left knee total knee arthroplasty on 09/16/2021. The patient has had a longstanding history of left knee pain. She previously underwent a knee arthroscopy with loose body removal and chondroplasty on 03/01/2020. She had some improvement, but not enough to avoid surgery. She has also tried cortisone injections as well as Euflexxa injection series in August 2020, but did not get significant relief. She is frustrated. She elects to proceed with surgical intervention in hopes of improving her function. There is occasional night pain. Pain is worse with weightbearing. It is affecting her ADLs. Her worst pain is medial. No numbness or tingling. Preoperative imaging has been obtained. She denies any locking. There is an occasional painful catching. Allergies Allergy/AdvReac Type Severity Reaction Status Date / Time No Known Allergies Allergy Verified 08/18/21 10:59 Home Medications Medication Instructions Recorded Confirmed Type ibvepcg-rdpqvbbkwtjko-wfchcthi 250 1 tab PO Q6H PRN 12/19/19 08/18/21 History mg-250 mg-65 mg tablet (Excedrin Migraine) ibuprofen 400 mg tablet 400 mg PO TID PRN 12/19/19 08/18/21 History polyethylene glycol 3350 17 gram 17 g PO DAILY 08/18/21 08/18/21 History oral powder packet (ClearLax) Past Med/Surg History Medical History 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 BEING TOO LOW> WAS ON PREDNISONE FOR A LONG TIME> NOW RESOLVED Migraine Surgical History Fusion of spine cervical> FULL ROM PER PATIENT H/O arthroscopic knee surgery left History of arthroscopy RT/LEFT SHOULDERS History of carpal tunnel release +ulnar nerve release Right (12/2019) History of colonoscopy Slow to wake up after anesthesia [place] teeth removed Family History (Updated 09/15/21 @ 07:55 by Carlos Bonilal PA-C) Father Diabetes Other Cancer Hypertension Myocardial infarction No family history of adverse response to anesthesia Stroke Social History Smoking Status: Never smoker Second Hand Exposure: Yes (IN THE PAST); Hx Alcohol Use: Yes Alcohol type: beer and wine Hx Substance Use: No Preferred Language: Sinhala Communication Ability: Effective Vertica Architect Required: No Beliefs That Will Affect Care: None Current Living Situation: Spouse Feels Safe at Home: Yes Assistive Devices: Glasses Review of Systems Review of Systems: All systems reviewed & are unremarkable except as noted in HPI & below Physical Exam Physical Exam: Vitals: Height 161 cm, weight 56.4 kilograms, BMI 21.6, temperature 36.4, BP 98/56, pulse 68, respirations 16, O2 sat 97% on room air. General: Well-developed, well-nourished, middle-aged female in no acute distress. Sitting in a chair. Alert and oriented. Conversive. Skin: Warm and dry with good turgor. No rashes or lesions. No ecchymosis or erythema. No intraarticular effusion. HEENT: Normocephalic, atraumatic. Eyes: PERRLA, EOMI. Nares and oropharynx exams deferred due to COVID precautions. Heart: RRR. No MGR. Lungs: Clear to auscultation bilaterally. No crackles, rhonchi or wheezing. Good air movement. Abdomen: Bowel sounds present x4, soft, nontender. No organomegaly. No masses. Musculoskeletal: Left knee evaluation reveals no intraarticular effusion. No redness or warmth. She has full terminal extension. Flexion to greater than 115 degrees. Strength is 5/5 with good quad tone. She has focal pain with palpation over the medial joint line. No lateral joint line discomfort with palpation today. Stable cruciate and collateral ligaments. No defect in the patellar tendon or quadriceps tendon. No pain with circumduction testing medially. Ambulating today with a slightly antalgic gait. Neurologic: Gross sensation is intact across the lower extremities by soft touch. Peripheral pulses are 2+. Results & Data Results & Data ([facility]) Diagnostic Findings Radiographic imaging previously obtained review medial joint space narrowing, periarticular osteophytes, and subchondral sclerosis. Subchondral cysts are also present. Slight varus alignment. Code Status & VTE Plan VTE Prophylaxis Plan VTE Prophylaxis will be ordered: Yes
[2021-09-16] MEDS ORDERED: LR 60ML/HR IV SCH (06:00)
[2021-09-16] MEDS ORDERED: GABAPENTIN 300 MG CAP PO SCH (06:00)
[2021-09-16] MEDS ORDERED: ceFAZolin 2000MG 2,000 MG/15 ML SYR IV SCH (06:00)
[2021-09-16] MEDS ORDERED: Scopolamine 1 MG TDSY TD SCH (06:00)
[2021-09-16] MEDS ORDERED: TRANEXAMIC ACID 1,000 MG **IV Pre-op IV SCH (06:00)
[2021-09-16] MEDS ORDERED: CeleBREX 200 MG CAP PO SCH (06:00)
[2021-09-16] MEDS ORDERED: FAMOTIDINE 20 MG TAB PO SCH (06:00)
[2021-09-16] MEDS ORDERED: METOCLOPRAMIDE HCL 10 MG TABLET PO SCH (06:00)
[2021-09-16] MEDS ORDERED: LR 500ML BOLUS, THEN 15ML/HR IV SCH (06:00)
[2021-09-16] MEDS ORDERED: TRANEXAMIC ACID 1,000 MG **IV Intra-op IV SCH (06:00)
[2021-09-16] MEDS ORDERED: oxyCODONE HCL 10 MG TABCR (OxyCONTIN) PO SCH (06:00)
[2021-09-16] MEDS ORDERED: ROPIVACAINE 0.5% HCL/PF 150 MG, BUPIVACAINE 0.75% MPF 20 ML, EPINEPHrine 0.15 MG, Ketor... INFIL SCH (06:00)
[2021-09-16] MEDS ORDERED: ACETAMINOPHEN 500 MG TAB PO SCH (06:00)
[2021-09-16] MEDS ORDERED: BUPIVACAINE 0.5 % 5 MG/1 ML PF 10ML VIAL ONE (06:26)
[2021-09-16] MEDS ORDERED: fentaNYL citrate 100 MCG/2 ML VIAL IV PRN (06:36)
[2021-09-16] MEDS ORDERED: ONDANSETRON INJ 2 MG/ML 2 ML VIAL IV PRN ×2 (06:36→09:41)
[2021-09-16] MEDS ORDERED: ATROPINE SULFATE 0.1 MG/ML 10ML SYR IV PRN (06:36)
[2021-09-16] MEDS ORDERED: ePHEDrine sulfate 50 MG/ML AMP IV PRN (06:36)
--- NOTE | 2021-09-16 06:36 | History & Physical Bridge Note ---
Date of Service September 16, 2021 History & Physical Bridge Note I have examined the patient, reviewed the History & Physical and in the interval since the performance of the History & Physical I have noted the following changes of clinical significance: no changes noted Patient is aware of the risks, is asymptomatic, and tested negative for COVID.
[2021-09-16] MEDS ORDERED: fentaNYL citrate 100 MCG/2 ML VIAL ONE (06:39)
[2021-09-16] MEDS ORDERED: MIDAZOLAM HCL 1 MG/ML 2ML VIAL ONE (06:39)
[2021-09-16] MEDS ORDERED: ORTHO JOINT ANESTHETIC ONE (06:42)
[2021-09-16] MEDS ORDERED: DEXAMETHASONE SOD INJ 4 MG/ML VIAL ONE (06:47)
[2021-09-16] MEDS ORDERED: PROPOFOL IV EMULSION 10 MG/ML 20 ML VIAL IV ONE ×2 (06:47→06:48)
[2021-09-16] MEDS ORDERED: LIDOCAINE 2% 2 ML VIAL/AMP(20MG/ML) INFIL ONE ×2 (06:47→06:48)
[2021-09-16] MEDS ORDERED: ePHEDrine sulfate 50 MG/ML AMP ONE (07:42)
[2021-09-16] MEDS ORDERED: ONDANSETRON INJ 2 MG/ML 2 ML VIAL ONE (09:14)
--- NOTE | 2021-09-16 09:22 | Post Operative Brief Note ---
Immediate Post Op Note v1 Date of Surgery September 16, 2021 Pre & Post Diagnosis Operation Date: 09/16/21 07:00 Pre-Op Diagnosis: Left Knee Osteoarthritis Post-Op Diagnosis: Left Knee Osteoarthritis I identified the patient and participated in the time-out.: Yes Procedure Operation Date: 09/16/21 07:00 Actual Procedures p Left Total Knee Arthroplasty(Left) - Serafin Rivas MD Surgeon Serafin Rivas MD Ground Systems Engineer BATSHEVA FernandezC (No fellow avail) Estimated Blood Loss 75 Findings Consistent with Post-Op Diagnosis Fluids 1500 cc Specimens Left knee contents Anesthesia Type MAC Spinal Regional Complications none
--- NOTE | 2021-09-16 09:23 | Operative Report ---
Post Operative Report Pre & Post Diagnosis Operation Date: 09/16/21 07:00 Pre-Op Diagnosis: Left Knee Osteoarthritis Post-Op Diagnosis: Left Knee Osteoarthritis I identified the patient and participated in the time-out.: Yes Procedure Operation Date: 09/16/21 07:00 Actual Procedures p Left Total Knee Arthroplasty(Left) - Serafin Rivas MD Surgeon Serafin Rivas MD Nursing Home Social Worker Andrew Quiroz PA-C (No fellow avail) Estimated Blood Loss 75 Findings See Below Examined Under Anesthesia: ROM -- There was 0 degrees to 135 degrees of flexion Ligamentous examination -- revealed stable Pretty, posterior drawer, varus and valgus stress at 0 and 30 degrees. Outerbridge Type IV changes of Medial compartment and Patellofemoral compartment, type II changes lateral compartment with marginal osteophytes.. Fluids 1500 cc Specimens left knee contents Anesthesia Type MAC Spinal Regional Complications none Indications This is a 66-year-old female who has clinical and radiographic findings consistent with osteoarthritis of the a left knee. I recommended that a left total knee replacement be performed. The patient understands the risks of surgery, which include but not limited to: bleeding, infection, re-operation, damage to nerves and arteries, continued knee pain, knee stiffness, DVT, and . The patient understands all of these instructions and explanations, all of his questions have been satisfactorily addressed and the patient has elected to proceed. Informed consent was signed. Description of Procedure IMPLANTS: 1. Femur: Triathlon #3 Left PS, with Femoral distal pegs. 2. Tibia: Triathlon #3 [place]. 3. Insert: Triathlon #3 x 9 mm PS X3 poly. 4. Patella: Triathlon A32 x 10 mm X3 poly. 5. Simplex cement. Mehdi Quiroz PA-C is assisting with positioning, retracting, and closure due to fellow not available. Procedure: The patient was taken to the Operating Room and placed in the supine position after spinal and adductor canal nerve block was administered. My initials and a multidisciplinary time-out were used to identify the left leg as the correct operative limb. A tourniquet was placed high in the thigh. Prior to the incision, 2 grams of intravenous Ancef were given. The left leg was then prepped and draped in a standard sterile fashion. An Esmarch was used to exsanguinate the leg and the tourniquet was inflated to 250 mmHg. The planned mid-line 20 cm incision was created exposing the extensor mechanism. The medial parapatellar arthrotomy was made and the patella was everted. The patella was addressed first. It was prepared by reaming from 22 mm down to 12 mm. An A32 button was found to fit best. The peg holes were made in the standard fashion. The femur was addressed next and the guide freddie was placed intramedullary. The initial cutting block was placed with 5 degrees of valgus and removing 8 mm for the distal cut. The cut was made and the 4-in-1 cutting block for a size 3 femur was placed. These cuts and the cuts to place the box were made in the standard fashion.The distal femoral pegs were placed after the trial femur was placed. Our attention was then drawn to the tibia cut with the external cutting guide, taking 6 mm from the medial low side. There was sufficient extension and flexion gap to fit a 9 mm spacer. A #3 Tibial baseplate fit well. A trial with a 9 mm spacer showed excellent stability in both flexion and extension, with good ligament balance, and thumbs free patellar tracking. Range of motion of 0- 135 degrees. The tibial baseplate was prepped for the keel and stem. All the trial components were tested again, with good stability and thumbs free tracking of the patella. All components were removed. The tourniquet was deflated. Hemostasis was obtained. 90 ml of total knee cocktail were injected into the soft tissues and periosteum. A bone plug was placed in the femur and covered with bone wax. After a 15 minute break, the limb was exsanguinated again and the tourniquet was re-inflated. All surfaces were copiously irrigated prior to placement of the components. The femoral component followed by Tibial baseplate were cemented in place and the 9 mm X3 poly was placed. Next, the patellar button was placed using the same Simplex cement. Once the cement had cured, the range of motion and stability were unchanged. The extensor mechanism was closed with 1-0 and 0 Vicryl with the knee bent approximately 60 degrees in a standard fashion. The peritenon and deep fascia was closed with 2-0 Vicryl. The subcutaneous layer was closed with 3-0 Vicryl. The skin was closed with Zipline and shield. The limb was cleaned and dried. 4x4 dressing was placed over top followed by ABDs, sterile Webril, and a foot to thigh Estuardo bandage. The patient was then transferred to the Recovery Room in stable condition. The sponge and needle counts were correct. POST-OP INSTRUCTIONS: The patient will be WBAT. The patient will be admitted to the hospital. Labs will be obtained during the stay. DVT prophylaxis will included aspirin for 6 weeks, TEDs, and mechanical foot pumps. The dressing will be changed prior to their discharge or postop day #2 and covered with a Silverlon dressing, whichever comes first. I attest to the content of the Intraoperative Record and any orders documented therein. Any exceptions are noted below.
--- NOTE | 2021-09-16 09:40 | Operative Report ---
Post Operative Report Pre & Post Diagnosis Operation Date: 09/16/21 07:00 Pre-Op Diagnosis: Left Knee Osteoarthritis Post-Op Diagnosis: Left Knee Osteoarthritis I identified the patient and participated in the time-out.: Yes Procedure Operation Date: 09/16/21 07:00 Actual Procedures p Left Total Knee Arthroplasty(Left) - Serafin Rivas MD Surgeon Dr Serafin Rivas Supervisor Assembly And Packing Andrew Quiroz PA-C (No fellow avail) Estimated Blood Loss 75 Findings Consistent with Post-Op Diagnosis Specimens none Description of Procedure Pt was taken to operating room, placed under MAC with spinal anesthesia. Pt was given 2g Ancef IV. Prepped and draped in sterile fashion. I was present during the entire case and assisted with positioning, instrumentation, closure and dressings. Please see Dr. Rivas's op report for further detail. Pt was awake and transferred to PACU in stable condition I attest to the content of the Intraoperative Record and any orders documented therein. Any exceptions are noted below.
[2021-09-16] MEDS ORDERED: METOCLOPRAMIDE HCL INJ 5 MG/ML 2 ML VIAL IV PRN (09:41)
[2021-09-16] MEDS ORDERED: NALOXONE HCL 0.4 MG/1 ML VIAL/CARP IV PRN (09:41)
[2021-09-16] MEDS ORDERED: MAGNESIUM HYDROXIDE SUSP 30 ML UDC PO PRN (09:41)
[2021-09-16] MEDS ORDERED: oxyCODONE HCL IR 5 MG TAB (IMMEDIATE RELEASE) PO PRN (09:41)
[2021-09-16] MEDS ORDERED: bisacodyL 10 MG SUPP PR PRN (09:41)
[2021-09-16] MEDS ORDERED: HYDROmorphone INJ 0.5 MG/0.5 ML SYR IV PRN (09:41)
[2021-09-16] MEDS ORDERED: NON-FORMULARY MEDICATION (Aspirin-Acetaminophen-Caffeine [Excedrin Migraine] 250-250-65 mg PO PRN (10:05)
--- NOTE | 2021-09-16 10:13 | Anesthesiology Progress Note ---
Date of Service September 16, 2021 Anesthesia Post Procedure Vital Signs Vital Signs: Temp Pulse Pulse Resp BP Pulse Ox 09/16/21 10:05 63 17 97/51 L 99 09/16/21 09:55 53 L 14 91/51 L 99 09/16/21 09:45 61 14 92/49 L 98 09/16/21 09:36 97.2 F L 64 14 94/52 L 99 09/16/21 05:41 98.6 F 67 20 130/70 98 Pain Intensity Left Knee: Pain Intensity: 0 Head: Pain Intensity: 9 Transfer of Care Handoff Completed per policy Notes Mental Status: alert / awake / arousable and participated in evaluation Patient Amnestic to Procedure: Yes Nausea / Vomiting: adequately controlled Pain: adequately controlled Airway Patency, RR, SpO2: stable & adequate BP & HR: stable & adequate Hydration State: stable & adequate Neuraxial Anesthesia: was administered and sensory block is resolving Anesthetic Complications: no major complications apparent and Pt Satisfied with anesthetic care
--- NOTE | 2021-09-16 10:43 | XRay Report ---
TWO VIEWS LEFT KNEE CLINICAL HISTORY: Postoperative examination. FINDINGS: AP and crosstable lateral portable views of the left knee are obtained. A left knee arthrop lasty is in near anatomic alignment. There has been undersurface remodeling of the patella. No acute fracture is seen. There are expected postoperative changes around the knee including soft tissue zully a and subcutaneous gas. IMPRESSION: Expected postoperative changes status post left knee arthroplasty. No acute fracture is s een. ACT 112: Negative or not required by law. Electronically signed by: Corwin Calderón M.D. 09/16/2021 10:41 AM
[2021-09-16] MEDS: SODIUM CHLORIDE 0.9% 1000ML 1,000 ML IV SCH ×2 (11:06→20:27)
[2021-09-16] MEDS: ACETAMINOPHEN 500 MG TAB PO SCH ×2 (14:01→22:34)
[2021-09-16] MEDS: ceFAZolin 2000MG 2,000 MG/15 ML SYR IV SCH ×2 (15:02→22:35)
[2021-09-16] MEDS ORDERED: Scopolamine CHECK PATCH PLACEMENT SCH (16:00)
[2021-09-16] MEDS: FERROUS GLUCONATE 324 MG TAB PO SCH (17:06)
[2021-09-16] MEDS: ASCORBIC ACID 500 MG TAB PO SCH (17:06)
[2021-09-16] MEDS: ASPIRIN 81 MG ECTAB PO SCH (20:23)
[2021-09-16] MEDS: DOCUSATE SODIUM 100 MG CAP PO SCH (20:23)
[2021-09-16] MEDS ORDERED: SENNA 8.6 MG TAB PO SCH (21:00)
[2021-09-17] MEDS: ACETAMINOPHEN 500 MG TAB PO SCH (05:56)
[2021-09-17] MEDS: SODIUM CHLORIDE 0.9% 1000ML 1,000 ML IV SCH (06:01)
[2021-09-17 06:15] LABS: Hematocrit (blood only) 33.5 % (37-47); Hemoglobin 10.7 g/dL (12.0-16.0); Mean Corpuscular Hemoglobin 30.5 pg (25-34); Mean Corpuscular Hgb Conc 31.9 g/dL (32-36); Mean Corpuscular Volume 95.4 fL (80-100); Mean Platelet Volume 9.2 fL (7.4-10.4); Platelet Count 197 K/uL (130-400); RDW Coefficient of Variation 13.6 % (11.5-14.5); RDW Standard Deviation 47.4 fL (36.4-46.3); Red Blood Count 3.51 M/uL (4.2-5.4)
[2021-09-17 06:35] LABS: BUN Creatinine Ratio 25.4 (10-20); Calcium 8.3 mg/dl (8.5-10.1); Creatinine Clr Calc Pharmacy 71.3 ml/min; Est GFR (African American) 109.9 ml/min; Est GFR (Non-African American) 94.8 ml/min; Potassium 4.3 mmol/L (3.5-5.1)
[2021-09-17] MEDS: FERROUS GLUCONATE 324 MG TAB PO SCH (09:21)
[2021-09-17] MEDS: DOCUSATE SODIUM 100 MG CAP PO SCH (09:21)
[2021-09-17] MEDS: ASPIRIN 81 MG ECTAB PO SCH (09:21)
[2021-09-17] MEDS: ASCORBIC ACID 500 MG TAB PO SCH (09:22)
--- NOTE | 2021-09-17 09:41 | Discharge Summary ---
Date of Service September 17, 2021 Admission HPI Per Admitting Provider Pt was seen and examined bedside. POD #1 s/p total knee arthroplasty. Pt was admitted last night for observation. No major events over night. Vitals are stable. Labs unremarkable. X-rays show normal post operative changed. Pt reports they are doing well and pain is controlled. They are tolerating PO intake and voiding adequate amounts. Working well with PT/OT. Pt denies F/C, N/V/D, SOB, CP. Pt deemed medically stable and ready for discharge. Principal Diagnosis left knee primary osteoarthritis s/p left total knee arthroplasty Discharge Exam General: Pt laying in hospital bed AA&O, in NAD, calm and cooperative during exam Lower Extremity: Dressing in tact and not saturated. Incisions clean, dry and with minimal drainage and no surrounding erythema, warmth or purulent drainage. Pt has full ROM of ankle and all 5 digits. Pt has 5/5 strength with resisted DF/PF. SLR in tact. Calf supple and non tender. NVI with sensation to light touch distally and good distal pulses present. Lower extremity noted to have good color and temperature with no signs of vascular or lymphatic insufficiency. Dressing was taken down and mepilex dressing applied. Discharge Data Allergies Allergy/AdvReac Type Severity Reaction Status Date / Time No Known Allergies Allergy Verified 09/16/21 05:39 Procedures Performed Operation Date: 09/16/21 07:00 Actual Procedures p Left Total Knee Arthroplasty(Left) - Serafin Rivas MD Ordered Studies 09/16/21 05:00 US - OR guided needle placemen Routine Hospital Course (1) Left knee DJD: -Pt deemed stable for discharge today after she finishes with PT/OT -Weight bearing as tolerated with walker to assist in ambulation -Home health/PT x 2 weeks. You will receive home exercises to do on your own for the first two weeks from home PT. Please do these exercises 3 times a day. -Frequently ice, at least 15 minutes 4 times a day. -Elevate operative leg above your heart with pillows/blankets underneath your ankle, never under your knee. This helps to keep the knee in extension and prevent a flexion contracture. -You may shower on Post op Day 3. Leave Mepilex dressing in tact until follow up appt in 2 weeks. Your dressing is water-resistant, meaning you can shower with it on as long as it is in-tact. Letting some running water run over top of it from the shower is okay. You cannot submerge your incision in water. No baths, hot tubs or swimming pools. Keep dressing clean and dry. If your dressing starts to peel off or gets moisture under it after 7 days, home health nurse may reinforce as needed. -DVT prophylaxis: Aspirin 81mg twice a day for 6 weeks, LAMINE compression s tockings for 3 weeks -While taking Aspirin, if you start to get upset stomach, we recommend taking over the counter Pepcid, 20mg twice a day as long as you are taking the Aspirin -Pain control: oxycodone 5mg every 4-6 hours as needed, Tylenol 500-1000mg every 8 hours -To promote healing, please take 500mg Vitamin C twice a day with meals x 2 weeks and Iron 325 mg twice a day with meals x 2 weeks -While on narcotic pain medication and iron supplement, we recommend you take a stool softener to prevent constipation -Follow up as scheduled in 2 weeks with [facility] for post op evaluation and Zip-line removal. Please call out office sooner if you have any questions or concerns Total Time Total Time Spent Total Time Spent (In Minutes): 30 minutes Discharge Plan Discharge Items Patient Disposition: Home - Home Health Services Reason For Visit: Left Knee Osteoarthritis Discharge Diagnosis: same as above Activity: Per Instructions section Non-emergency contact: Surgeon Call non-emergency contact if: you have any medication questions, your pain is not controlled, your temperature is above 101.5, your wound has increased redness and your wound has increased drainage Follow-up/Referrals: Lisa Moise MD [Primary Care Provider] - Mee Quiroz PA-C [Physician Emt/Dispatcher] - Diet: Regular Addtl Attending Provider Instructions: -Weight bearing as tolerated with walker to assist in ambulation -Home health/PT x 2 weeks. You will receive home exercises to do on your own for the first two weeks from home PT. Please do these exercises 3 times a day. -Frequently ice, at least 15 minutes 4 times a day. -Elevate operative leg above your heart with pillows/blankets underneath your ankle, never under your knee. This helps to keep the knee in extension and prevent a flexion contracture. -You may shower on Post op Day 3. Leave Mepilex dressing in tact until follow up appt in 2 weeks. Your dressing is water-resistant, meaning you can shower with it on as long as it is in-tact. Letting some running water run over top of it from the shower is okay. You cannot submerge your incision in water. No baths, hot tubs or swimming pools. Keep dressing clean and dry. If your dressing starts to peel off or gets moisture under it after 7 days, home health nurse may reinf orce as needed. -DVT prophylaxis: Aspirin 81mg twice a day for 6 weeks, LAMINE compression stockings for 3 weeks -While taking Aspirin, if you start to get upset stomach, we recommend taking over the counter Pepcid, 20mg twice a day as long as you are taking the Aspirin -Pain control: oxycodone 5mg every 4-6 hours as needed, Tylenol 500-1000mg every 8 hours -To promote healing, please take 500mg Vitamin C twice a day with meals x 2 weeks and Iron 325 mg twice a day with meals x 2 weeks -While on narcotic pain medication and iron supplement, we recommend you take a stool softener to prevent constipation -Follow up as scheduled in 2 weeks with [facility] for post op evaluation and Zip-line removal. Please call out office sooner if you have any questions or concerns Pending Studies at Discharge: No Stand-Alone Forms: My [facility] Medications and DC Order Prescriptions: New aspirin 81 mg Tablet,Delayed Release (Dr/Ec) 81 mg PO BID 42 Days Qty: 84 RF: 0 acetaminophen [Tylenol Extra Strength] 500 mg Tablet 1,000 mg PO Q8 15 Days Qty: 90 RF: 0 ascorbic acid (vitamin C) [Vitamin C] 500 mg Tablet 500 mg PO BIDM 14 Days Qty: 28 RF: 0 docusate sodium 100 mg Capsule 100 mg PO BID 5 Days Qty: 10 RF: 0 oxycodone 5 mg Tablet 5 mg PO Q6H PRN (Reason: post op pain control) 5 Days Qty: 18 RF: 0 ferrous gluconate 324 mg (38 mg iron) Tablet 324 mg PO BIDM 14 Days Qty: 28 RF: 0 Continued Excedrin Migraine 250-250-65 mg Tablet 1 tab PO Q6H PRN (Reason: Pain) RF: 0 polyethylene glycol 3350 [ClearLax] 17 gram powder in packet 17 g PO DAILY RF: 0 Discontinued ibuprofen 400 mg Tablet 400 mg PO TID PRN (Reason: Pain) RF: 0 Discharge Orders: Discharge Order (Routine); Ordered 09/17/21 Ordered By: Mee Vance/Other Patient Handouts: Knee Osteoarthritis Admission Data Admit Date/Time: 09/16/21 09:41 Attending Provider: Serafin Rivas Admit Provider: Serafin Rivas Primary Care Provider: Lisa Moise Other Providers: [facility] Other Interventions: Discharge Summary Assessment (RN) Last Done: 09/17/21 10:21
--- NOTE | 2021-09-17 10:16 | Orthopedic Progress Note ---
Date of Service September 17, 2021 Assessment & Plan (1) Left knee DJD: Plan: POD #1 s/p L TKA, doing as well as expected. Resume diet. WBAT with walker. OOB to chair. Continue pain control. DVT prophylaxis: TEDs 3 weeks, foot pumps while in hospital, ASA 81 mg BID for 6 weeks. PT/OT. D/C planning for home later today. Present on Admission?: Yes Admission and Anticipated Discharge Date Admission Date: September 16, 2021 Subjective Doing well, only using Tylenol for pain Review of Systems Review of Systems: All systems reviewed & are unremarkable except as noted in HPI & below Physical Exam Physical Exam: Ambulating well with walker from bathroom to bed. LLE: BCR < 2 sec. Sensation to light touch intact distally. Wiggling ankle and toes. Calf soft and non-tender. Dressing/Incision is clean, dry, intact. Results & Data ([facility]) Vital Signs (Past 12 Hours) Vital Signs Temp Pulse Resp BP Pulse Ox 09/17/21 07:41 36.8 C 53 L 16 92/50 L 96 09/17/21 06:00 91/46 L 09/17/21 03:04 36.5 C 55 L 14 93/48 L 96 09/16/21 22:43 36.5 C 52 L 15 90/49 L 94 Laboratory Results 09/17/21 09/17/21 Range/Units 05:53 05:53 WBC 14.00 H (4.8-10.8) K/uL RBC 3.51 L (4.2-5.4) M/uL Hgb 10.7 L (12.0-16.0) g/dL Hct 33.5 L (37-47) % MCV 95.4 (80-100) fL MCH 30.5 (25-34) pg MCHC 31.9 L (32-36) g/dL RDW Std Deviation 47.4 H (36.4-46.3) fL RDW Coeff of Ronnie 13.6 (11.5-14.5) % Plt Count 197 (130-400) K/uL MPV 9.2 (7.4-10.4) fL Sodium 138 (136-145) mmol/L Potassium 4.3 (3.5-5.1) mmol/L Chloride 111 H (98-107) mmol/L Carbon Dioxide 25 (21-32) mmol/L Anion Gap 2 L (3-11) BUN 16 (6-23) mg/dl Creatinine 0.63 (0.6-1.2) mg/dl Est Cr Clr Drug Dosing 71.3 ml/min Est GFR ( Amer) 109.9 ml/min Est GFR (Non-Af Amer) 94.8 ml/min BUN/Creatinine Ratio 25.4 H (10-20) Glucose 108 H (70-99(Fasting)) mg/dl Calcium 8.3 L (8.5-10.1) mg/dl Diagnostic Findings I reviewed the AP & lateral of the left knee which showed expected findings s/p L TKA.
== END 2021-09-17 13:48 | disposition home health service (06) ==
LOC: 3E 05:12 → ASU 05:12

== ENCOUNTER 2022-05-16 19:43 | Inpatient (IN) ==
--- NOTE | 2022-05-16 20:28 | Emergency Department Note ---
History of Present Illness General Chief complaint: Illness Stated complaint: bruising on legs, chest Time Seen by Provider: 05/16/22 19:50 History of Present Illness Provider complaint: Rash Onset (ago): day(s) 2 Associated symptoms: + cough, + headaches and + rash; no fever/chills, no nausea/vomiting or no shortness of breath 67-year-old female presents emergency department for rash. Patient notes that she has had a petechial rash for the last 2 days. 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 Patient also notes that she had a lesion in her mouth. No new medications. Patient does report that she started having a cold 2 days ago. No fevers. She also reports headaches. Home Medications Medication Instructions Recorded Confirmed Type ufqsonh-jpeirbkdrrvit-secxsdje 250 1 tab PO Q6H PRN Pain 12/19/19 05/16/22 History mg-250 mg-65 mg tablet (Excedrin Migraine) polyethylene glycol 3350 17 gram 17 g PO DAILY 08/18/21 05/16/22 History oral powder packet (ClearLax) acetaminophen 500 mg tablet 1,000 mg PO DIRECTED PRN Pain 05/16/22 05/16/22 History (Tylenol Extra Strength) ibuprofen 200 mg tablet (Advil) 400 mg PO DIRECTED PRN Pain 05/16/22 05/16/22 History Allergies Allergy/AdvReac Type Severity Reaction Status Date / Time No Known Allergies Allergy Verified 05/16/22 20:16 Past Med/Surg History Medical History 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 BEING TOO LOW> WAS ON PREDNISONE FOR A LONG TIME> NOW RESOLVED Migraine Surgical History Fusion of spine cervical> FULL ROM PER PATIENT H/O arthroscopic knee surgery left History of arthroscopy RT/LEFT SHOULDERS History of carpal tunnel release +ulnar nerve release Right (12/2019) History of colonoscopy Slow to wake up after anesthesia [place] teeth removed Family History Father Diabetes Other Cancer Hypertension Myocardial infarction No family history of adverse response to anesthesia Stroke Social History Smoking Status: Never smoker Second Hand Exposure: Yes (IN THE PAST); Hx Alcohol Use: Yes Alcohol type: beer and wine Hx Substance Use: No Preferred Language: Croatian Communication Ability: Effective Supervisor Poultry Hatchery Required: No Beliefs That Will Affect Care: None Current Living Situation: Spouse Feels Safe at Home: Yes Assistive Devices: Walker Review of Systems A total of 10 systems reviewed and were otherwise negative Physical Exam Vital Signs Vital Signs - 24 hr 05/16/22 19:45 05/16/22 19:50 05/16/22 19:44 Temperature 36.8 C Temperature Source Temporal Artery Scan Pulse Rate 108 H 77 Pulse Rate [Apical] 83 Pulse Rhythm Regular Regular Pulse Rhythm [Apical] Regular Pulse Strength Normal Pulse Strength [Apical] Normal Respiratory Rate 18 18 19 Respiratory Effort / Characteristics Non-Labored Spontaneous Non-Labored Spontaneous Respiratory Depth Normal Normal Respiratory Pattern Regular Regular Blood Pressure 132/80 Blood Pressure [Left Arm] 122/72 Blood Pressure Mean 97 Blood Pressure Mean [Left Arm] 88 Blood Pressure Position Sitting Pulse Oximetry 96 97 96 Oxygen Delivery Method Room Air Room Air Room Air Sepsis Recent Fever Within 48 Hours No Sepsis New/Unexplained Change in Mental Status N/A Sepsis Action Taken by Nursing No Action Required Physical Exam GENERAL: She is oriented to person, place, and time. She appears well-developed and well-nourished. She does not appear distressed. HENT: Exam performed. -Head: Normocephalic and atraumatic. -Right Ear: External ear normal. No mastoid tenderness. -Left Ear: External ear normal. No mastoid tenderness. -Mouth/Throat: The oropharynx is clear and moist. No trismus in the jaw. No dental abscesses or uvula swelling. No oropharyngeal exudate or tonsillar abscesses. wet purpura over the right buccal mucosa. EYES: Conjunctivae and EOM are normal. Pupils are equal, round, and reactive to light. Right eye exhibits no discharge. Left eye exhibits no discharge. No scleral icterus. NECK: Normal range of motion. Neck supple. No JVD present. No spinous process tenderness present. No carotid bruit present. No rigidity. No tracheal deviation and normal range of motion present. No Brudzinski's sign and no Kernig's sign noted. CV: Normal rate, regular rhythm, normal heart sounds and intact distal pulses. There is no peripheral edema. Palpable radial pulses bue. PULM/CHEST: Effort normal and breath sounds normal. No respiratory distress. No stridor. She has no wheezes. She has no rales. -Chest Wall: She exhibits no tenderness. ABD: The abdomen is soft. Bowel sounds are normal. She has no distension. No mass is present. There is no tenderness. There is no rebound, no guarding, no Zurita's sign and no tenderness at McBurney's point. Rovsig negative MUSC/SKEL: Normal range of motion. There is no peripheral edema, tenderness or deformity. LYMPH: No cervical adenopathy. NEURO: She is alert and oriented to person, place, and time. She has normal strength. No cranial nerve deficit or sensory deficit. Coordination and gait normal. GCS eye subscore is 4. GCS verbal subscore is 5. GCS motor subscore is 6. Cerebellar tests wnl. SKIN: Petechiae over the bilateral lower extremities and anterior chest wall. Course Course 1950: The patient was evaluated in room A10. A complete history and physical exam was performed Cardiac monitoring: An order was placed for continuous cardiac monitoring. The monitor shows a rate of 80 with sinus rhythm 2242: Vital signs stable. CT of the head within normal limits. Labs significant for platelet count of 3 hemoglobin hematocrit and kidney function are within normal limits. Discussed case with hematology oncology Dr. Brennan. He recommends that the patient be admitted and given Decadron 40 mg daily for the next 4 days. He recommends a CBC in the a.m. and he will evaluate the patient for immunoglobulins in the morning. Patient will be admitted to the hospitalist service Dr. Goins notified. Medical Decision Making Laboratory Data Result diagrams: 05/16/22 20:05 05/16/22 21:14 Lab Results 05/16/22 05/16/22 05/16/22 Range/Units 20:05 20:05 20:05 WBC 9.55 (4.8-10.8) K/ul RBC 4.52 (3.93-5.22) M/uL Hgb 13.7 (12.0-16.0) g/dl POC Hgb (12.0-16.0) g/dl Hct 41.3 (34.1-44.9) % POC Hct (37-47) % MCV 91.4 (80.0-100.0) fL MCH 30.3 (25.0-34.0) pg MCHC 33.2 (32.0-36.0) g/dL RDW Std Deviation 41.7 (36.4-46.3) fL RDW Coeff of Ronnie 12.5 (11.5-14.5) % Plt Count 3 L* (130-400) K/uL Immature Gran % (Auto) 0.2 % Neut % (Auto) 78.4 % Lymph % (Auto) 12.8 % [place] % (Auto) 6.4 % Eos % (Auto) 2.1 % Baso % (Auto) 0.1 % Neut # (Auto) 7.49 H (1.4-6.5) K/uL Lymph # (Auto) 1.22 (1.2-3.4) K/uL [place] # (Auto) 0.61 (0.24-0.82) K/uL Eos # (Auto) 0.20 (0-0.50) K/uL Baso # (Auto) 0.01 (0-0.2) K/uL Immature Gran # (Auto) 0.02 (0.00-0.02) K/uL Platelet Estimate Signific. Decreased L (Normal) PT Cancelled INR Cancelled APTT Cancelled PTT Ratio Cancelled POC Sodium (135-144) mmol/L Sodium 137 (136-145) mmol/L POC Potassium (3.3-5.0) mmol/L Potassium TNP POC Chloride (101-112) mmol/L Chloride 104 (98-107) mmol/L Carbon Dioxide 27 (21-32) mmol/L POC Total CO2 (24-31) mmol/L Anion Gap 6 (3-11) POC Anion Gap (16-25) mmol/L POC BUN (7-18) mg/dl BUN 21 (6-23) mg/dl Creatinine 0.75 (0.6-1.2) mg/dl POC Creatinine (0.6-1.3) mg/dl Est Cr Clr Drug Dosing 56.4 ml/min Est GFR ( Amer) 96.9 ml/min Est GFR (Non-Af Amer) 83.6 ml/min BUN/Creatinine Ratio 28.0 H (10-20) Glucose 110 H (70-99(Fasting)) mg/dl POC Glucose (other) (70-99) mg/dl Calcium 9.0 (8.5-10.1) mg/dl POC Ioniz Calcium Lexii (1.12-1.32) mmol/l SARS-CoV-2, RNA, NAAT (NEGATIVE) 05/16/22 05/16/22 05/16/22 Range/Units 21:02 21:14 22:16 WBC (4.8-10.8) K/ul RBC (3.93-5.22) M/uL Hgb (12.0-16.0) g/dl POC Hgb 13.9 (12.0-16.0) g/dl Hct (34.1-44.9) % POC Hct 41 (37-47) % MCV (80.0-100.0) fL MCH (25.0-34.0) pg MCHC (32.0-36.0) g/dL RDW Std Deviation (36.4-46.3) fL RDW Coeff of Ronnie (11.5-14.5) % Plt Count (130-400) K/uL Immature Gran % (Auto) % Neut % (Auto) % Lymph % (Auto) % [place] % (Auto) % Eos % (Auto) % Baso % (Auto) % Neut # (Auto) (1.4-6.5) K/uL Lymph # (Auto) (1.2-3.4) K/uL [place] # (Auto) (0.24-0.82) K/uL Eos # (Auto) (0-0.50) K/uL Baso # (Auto) (0-0.2) K/uL Immature Gran # (Auto) (0.00-0.02) K/uL Platelet Estimate (Normal) PT 10.6 INR 1.0 APTT 24.5 PTT Ratio 0.9 POC Sodium 140 (135-144) mmol/L Sodium (136-145) mmol/L POC Potassium 3.8 (3.3-5.0) mmol/L Potassium 3.7 POC Chloride 104 (101-112) mmol/L Chloride (98-107) mmol/L Carbon Dioxide (21-32) mmol/L POC Total CO2 27 (24-31) mmol/L Anion Gap (3-11) POC Anion Gap 14.0 L (16-25) mmol/L POC BUN 23 H (7-18) mg/dl BUN (6-23) mg/dl Creatinine (0.6-1.2) mg/dl POC Creatinine 0.7 (0.6-1.3) mg/dl Est Cr Clr Drug Dosing ml/min Est GFR ( Amer) ml/min Est GFR (Non-Af Amer) ml/min BUN/Creatinine Ratio (10-20) Glucose (70-99(Fasting)) mg/dl POC Glucose (other) 110 H (70-99) mg/dl Calcium (8.5-10.1) mg/dl POC Ioniz Calcium Lexii 1.19 (1.12-1.32) mmol/l SARS-CoV-2, RNA, NAAT (NEGATIVE) 05/16/22 Range/Units 22:49 WBC (4.8-10.8) K/ul RBC (3.93-5.22) M/uL Hgb (12.0-16.0) g/dl POC Hgb (12.0-16.0) g/dl Hct (34.1-44.9) % POC Hct (37-47) % MCV (80.0-100.0) fL MCH (25.0-34.0) pg MCHC (32.0-36.0) g/dL RDW Std Deviation (36.4-46.3) fL RDW Coeff of Ronnie (11.5-14.5) % Plt Count (130-400) K/uL Immature Gran % (Auto) % Neut % (Auto) % Lymph % (Auto) % [place] % (Auto) % Eos % (Auto) % Baso % (Auto) % Neut # (Auto) (1.4-6.5) K/uL Lymph # (Auto) (1.2-3.4) K/uL [place] # (Auto) (0.24-0.82) K/uL Eos # (Auto) (0-0.50) K/uL Baso # (Auto) (0-0.2) K/uL Immature Gran # (Auto) (0.00-0.02) K/uL Platelet Estimate (Normal) PT INR APTT PTT Ratio POC Sodium (135-144) mmol/L Sodium (136-145) mmol/L POC Potassium (3.3-5.0) mmol/L Potassium POC Chloride (101-112) mmol/L Chloride (98-107) mmol/L Carbon Dioxide (21-32) mmol/L POC Total CO2 (24-31) mmol/L Anion Gap (3-11) POC Anion Gap (16-25) mmol/L POC BUN (7-18) mg/dl BUN (6-23) mg/dl Creatinine (0.6-1.2) mg/dl POC Creatinine (0.6-1.3) mg/dl Est Cr Clr Drug Dosing ml/min Est GFR ( Amer) ml/min Est GFR (Non-Af Amer) ml/min BUN/Creatinine Ratio (10-20) Glucose (70-99(Fasting)) mg/dl POC Glucose (other) (70-99) mg/dl Calcium (8.5-10.1) mg/dl POC Ioniz Calcium Lexii (1.12-1.32) mmol/l SARS-CoV-2, RNA, NAAT NEGATIVE (NEGATIVE) MDM Narrative Vital signs stable. CT of the head within normal limits. Labs significant for platelet count of 3 hemoglobin hematocrit and kidney function are within normal limits. Discussed case with hematology oncology Dr. Brennan. He recommends that the patient be admitted and given Decadron 40 mg daily for the next 4 days. He recommends a CBC in the a.m. and he will evaluate the patient for immunoglobulins in the morning. Patient will be admitted to the hospitalist service Dr. Goins notified. Impression & Plan Acute ITP Discharge Plan Visit Data Chief Complaint: Illness Stated Complaint: bruising on legs, chest ED Provider: Dirk Huerta Discharge Problem: Acute ITP Patient Disposition: Admitted As Inpatient Forms Stand Alone Forms: [facility] Prescriptions Prescriptions: No Action Excedrin Migraine 250-250-65 mg Tablet 1 tab PO Q6H PRN (Reason: Pain) polyethylene glycol 3350 [ClearLax] 17 gram powder in packet 17 g PO DAILY acetaminophen [Tylenol Extra Strength] 500 mg Tablet 1,000 mg PO DIRECTED PRN (Reason: Pain) ibuprofen [Advil] 200 mg Tablet 400 mg PO DIRECTED PRN (Reason: Pain) Referrals Referrals: Lisa Moise MD [Primary Care Provider] -
[2022-05-16 21:33] LABS: Basophils # (auto) 0.01 K/uL (0-0.2); Basophils % (auto) 0.1 %; Eosinophils % (auto) 2.1 %; Hematocrit (blood only) 41.3 % (34.1-44.9); Hemoglobin 13.7 g/dl (12.0-16.0); Immature Granulocytes # (auto) 0.02 K/uL (0.00-0.02); Immature Granulocytes % (auto) 0.2 %; Lymphocytes # (auto) 1.22 K/uL (1.2-3.4); Lymphocytes % (auto) 12.8 %; Mean Corpuscular Hemoglobin 30.3 pg (25.0-34.0); Mean Corpuscular Hgb Conc 33.2 g/dL (32.0-36.0); Mean Corpuscular Volume 91.4 fL (80.0-100.0); Monocytes # (auto) 0.61 K/uL (0.24-0.82); Monocytes % (auto) 6.4 %; Neutrophils # (auto) 7.49 K/uL (1.4-6.5); Neutrophils % (auto) 78.4 %; Platelet Count 3 K/uL (130-400); Platelet Estimate Signific. Decreased (Normal); RDW Coefficient of Variation 12.5 % (11.5-14.5); RDW Standard Deviation 41.7 fL (36.4-46.3); Red Blood Count 4.52 M/uL (3.93-5.22); White Blood Count 9.55 K/ul (4.8-10.8)
[2022-05-16 21:57] LABS: Anion Gap 6 (3-11); Blood Urea Nitrogen 21 mg/dl (6-23); Carbon Dioxide 27 mmol/L (21-32); Chloride 104 mmol/L (98-107); Creatinine Clr Calc Pharmacy 56.4 ml/min; Est GFR (African American) 96.9 ml/min; Est GFR (Non-African American) 83.6 ml/min; Glucose 110 mg/dl (70-99(Fasting)); Sodium 137 mmol/L (136-145)
[2022-05-16 22:13] LABS: Partial Thromboplastin Ratio 0.9; Partial Thromboplastin Time 24.5 Seconds (21.0-31.0); Prothrombin Time 10.6 Seconds (9.0-12.0)
[2022-05-16 22:29] LABS: iSTAT Creatinine 0.7 mg/dl (0.6-1.3); iSTAT Hemoglobin 13.9 g/dl (12.0-16.0); iSTAT Ionized Calcium 1.19 mmol/l (1.12-1.32); iSTAT Potassium 3.8 mmol/L (3.3-5.0)
[2022-05-16] MEDS ORDERED: DEXAMETHASONE SOD INJ 4 MG/ML VIAL IV STA (22:44)
[2022-05-16] MEDS ORDERED: dexAMETHasone 40 MG in DEXTROSE 5% 25 ML IV SCH (22:45)
[2022-05-16] MEDS ORDERED: ACETAMINOPHEN 500 MG TAB PO STA (23:45)
--- NOTE | 2022-05-16 23:58 | History & Physical Report ---
Date of Service May 16, 2022 Assessment & Plan (1) Thrombocytopenia: Plan: 67yo female with remote history of ITP which resolved with steroid treatment presenting with petechial rash and oral lesions as well as some mild epistaxis ongoing for the last 3 days. Patient found to have severe thrombocytopenia with platelets=3. Patient does take Excedrin Migraine which contains ASA. Suspect ITP flare. She has had recent URI symptoms of cough, GA and sore throat. Viral infection could be underlying cause. No severe bleeding at this time. CT of the head performed for reported GA - Unremarkable, no acute bleed She has received Dexamethasone 40mg IV -Continue Dexamethasone 40mg IV daily -Repeat CBC in AM -Hematology consultation appreciated F/E/N - Gentle IVF at 80mL/hr x 1L, electrolytes WNL, Regular diet as tolerated Ppx - No chemoprophylaxis given severe thrombocytopenia Code - Full Dispo -Admit to PCU History of Present Illness Chief Complaint: thrombocytopenia, petechiae and purpura Primary Care Provider: Lisa Moise MD Marine Izaguirre is a 67yo female with remote history of ITP - approximately 25 years ago she had low platelets, purpura and petechiae. She was treated with Prednisone only with resolution. She had a bone marrow biopsy at that time due to concern for possible malignancy but reports normal findings. She was living in [place] at the time. She reports a possible mild relapse this past summer where she developed some easy bruising but was told that her platelets were at the low end of normal at that time. Three days ago patient began to notice a petechial rash on her legs, abdomen and arms, oral lesions as well. She reports some mild epistaxis noted with blowing her nose. Patient has had some URI symptoms over the last few days - cough, headache and sore throat. She reports she has been around her grandson who was recently ill with similar symptoms. No additional complaints at this time. She denies visual disturbance, focal numbness or weakness. No chest pain, SOB, nausea, vomiting or diarrhea. No recent tick bites. In the ER she was treated with Dexamethasone 40mg IV per direction of Hematology. Allergies Allergy/AdvReac Type Severity Reaction Status Date / Time No Known Allergies Allergy Verified 05/16/22 20:16 Home Medications Medication Instructions Recorded Confirmed Type zwezahm-svvyknqkddloc-mkqjsjjr 250 1 tab PO Q6H PRN Pain 12/19/19 05/16/22 History mg-250 mg-65 mg tablet (Excedrin Migraine) polyethylene glycol 3350 17 gram 17 g PO DAILY 08/18/21 05/16/22 History oral powder packet (ClearLax) acetaminophen 500 mg tablet 1,000 mg PO DIRECTED PRN Pain 05/16/22 05/16/22 History (Tylenol Extra Strength) ibuprofen 200 mg tablet (Advil) 400 mg PO DIRECTED PRN Pain 05/16/22 05/16/22 History Past Med/Surg History Medical History 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 BEING TOO LOW> WAS ON PREDNISONE FOR A LONG TIME> NOW RESOLVED Migraine Surgical History Fusion of spine cervical> FULL ROM PER PATIENT H/O arthroscopic knee surgery left History of arthroscopy RT/LEFT SHOULDERS History of carpal tunnel release +ulnar nerve release Right (12/2019) History of colonoscopy Slow to wake up after anesthesia [place] teeth removed Family History Father Diabetes Other Cancer Hypertension Myocardial infarction No family history of adverse response to anesthesia Stroke Social History Smoking Status: Never smoker Second Hand Exposure: Yes (IN THE PAST); Hx Alcohol Use: Yes Alcohol type: beer and wine Hx Substance Use: No Preferred Language: Chinese Communication Ability: Effective Shuttle Fixer Required: No Beliefs That Will Affect Care: None Current Living Situation: Spouse Feels Safe at Home: Yes Assistive Devices: Walker Review of Systems Review of Systems: All systems reviewed & are unremarkable except as noted in HPI & below Physical Exam Physical Exam: General: patient resting comfortably, NAD, non-toxic in appearance, AA&O x 4 Skin: warm, dry, intact, petechial rash noted on thighs, legs and arms bilaterally, purpuric lesions present on right buccal mucosa as well as left soft palate HEENT: NC/AT, PERRL, EOMI, anicteric sclera, conjunctiva without injection, external ear normal to inspection and nontender, nares patent, moist mucus membranes, dentition intact, no oropharyngeal lesions, neck supple, trachea midline, no LAD, no thyromegaly, no JVD Heart: +S1/S2, regular, no m/r/g Lungs: equal air entry bilaterally, no rales/rhonchi/wheezes Abd: +BS, soft, NT/ND, no masses/organomegaly/ascites Ext: warm, 2+ pulses in UE/LE bilaterally, no clubbing/cyanosis or edema Neuro: nonfocal, patient AA&O x 4, speech intact, no facial droop, moving all extremities on command with equal strength 5/5 Results & Data Results & Data ([facility]) Vital Signs (Past 12 Hours) Vital Signs Temp Pulse Pulse Resp BP BP Pulse Ox 05/16/22 23:52 88 17 130/71 96 05/16/22 19:44 83 19 122/72 96 05/16/22 19:50 77 18 97 05/16/22 19:45 36.8 C 108 H 18 132/80 96 O2 Del Method 05/16/22 23:52 Room Air 05/16/22 19:44 Room Air 05/16/22 19:50 Room Air 05/16/22 19:45 Room Air Laboratory Results Laboratory Results WBC 9.55 K/ul (4.8-10.8) 05/16/22 20:05 RBC 4.52 M/uL (3.93-5.22) 05/16/22 20:05 Hgb 13.7 g/dl (12.0-16.0) 05/16/22 20:05 POC Hgb 13.9 g/dl (12.0-16.0) 05/16/22 22:16 Hct 41.3 % (34.1-44.9) 05/16/22 20:05 POC Hct 41 % (37-47) 05/16/22 22:16 MCV 91.4 fL (80.0-100.0) 05/16/22 20:05 MCH 30.3 pg (25.0-34.0) 05/16/22 20:05 MCHC 33.2 g/dL (32.0-36.0) 05/16/22 20:05 RDW Std Deviation 41.7 fL (36.4-46.3) 05/16/22 20:05 RDW Coeff of Ronnie 12.5 % (11.5-14.5) 05/16/22 20:05 Plt Count 3 K/uL (130-400) L* 05/16/22 20:05 Immature Gran % (Auto) 0.2 % 05/16/22 20:05 Neut % (Auto) 78.4 % 05/16/22 20:05 Lymph % (Auto) 12.8 % 05/16/22 20:05 [place] % (Auto) 6.4 % 05/16/22 20:05 Eos % (Auto) 2.1 % 05/16/22 20:05 Baso % (Auto) 0.1 % 05/16/22 20:05 Neut # (Auto) 7.49 K/uL (1.4-6.5) H 05/16/22 20:05 Lymph # (Auto) 1.22 K/uL (1.2-3.4) 05/16/22 20:05 [place] # (Auto) 0.61 K/uL (0.24-0.82) 05/16/22 20:05 Eos # (Auto) 0.20 K/uL (0-0.50) 05/16/22 20:05 Baso # (Auto) 0.01 K/uL (0-0.2) 05/16/22 20:05 Immature Gran # (Auto) 0.02 K/uL (0.00-0.02) 05/16/22 20:05 Platelet Estimate Signific. Decreased (Normal) L 05/16/22 20:05 PT 10.6 Seconds (9.0-12.0) 05/16/22 21:02 INR 1.0 (0.9-1.1) 05/16/22 21:02 APTT 24.5 Seconds (21.0-31.0) 05/16/22 21:02 PTT Ratio 0.9 05/16/22 21:02 POC Sodium 140 mmol/L (135-144) 05/16/22 22:16 Sodium 137 mmol/L (136-145) 05/16/22 20:05 POC Potassium 3.8 mmol/L (3.3-5.0) 05/16/22 22:16 Potassium 3.7 mmol/L (3.5-5.1) 05/16/22 21:14 POC Chloride 104 mmol/L (101-112) 05/16/22 22:16 Chloride 104 mmol/L (98-107) 05/16/22 20:05 Carbon Dioxide 27 mmol/L (21-32) 05/16/22 20:05 POC Total CO2 27 mmol/L (24-31) 05/16/22 22:16 Anion Gap 6 (3-11) 05/16/22 20:05 POC Anion Gap 14.0 mmol/L (16-25) L 05/16/22 22:16 POC BUN 23 mg/dl (7-18) H 05/16/22 22:16 BUN 21 mg/dl (6-23) 05/16/22 20:05 Creatinine 0.75 mg/dl (0.6-1.2) 05/16/22 20:05 POC Creatinine 0.7 mg/dl (0.6-1.3) 05/16/22 22:16 Est Cr Clr Drug Dosing 56.4 ml/min 05/16/22 20:05 Est GFR ( Amer) 96.9 ml/min 05/16/22 20:05 Est GFR (Non-Af Amer) 83.6 ml/min 05/16/22 20:05 BUN/Creatinine Ratio 28.0 (10-20) H 05/16/22 20:05 Glucose 110 mg/dl (70-99(Fasting)) H 05/16/22 20:05 POC Glucose (other) 110 mg/dl (70-99) H 05/16/22 22:16 Calcium 9.0 mg/dl (8.5-10.1) 05/16/22 20:05 POC Ioniz Calcium Lexii 1.19 mmol/l (1.12-1.32) 05/16/22 22:16 SARS-CoV-2, RNA, NAAT NEGATIVE (NEGATIVE) 05/16/22 22:49 PG Care Time/CCT Total # of Minutes Spent Total Time Spent with Patient: Total time spent is greater than 50% in coordination of care (as documented) at patient's floor/unit and/or counseling patient: Coding Level of Care Code 10297 Initial Inpt Care Lvl 2 Diagnoses Thrombocytopenia D69.6
--- NOTE | 2022-05-16 23:59 | History & Physical Report ---
Date of Service May 16, 2022 History of Present Illness Primary Care Provider: Lisa Moise MD Allergies Allergy/AdvReac Type Severity Reaction Status Date / Time No Known Allergies Allergy Verified 05/16/22 20:16 Home Medications Medication Instructions Recorded Confirmed Type xloysig-dsjmbpmpbakpk-wsmjrgon 250 1 tab PO Q6H PRN Pain 12/19/19 05/16/22 History mg-250 mg-65 mg tablet (Excedrin Migraine) polyethylene glycol 3350 17 gram 17 g PO DAILY 08/18/21 05/16/22 History oral powder packet (ClearLax) acetaminophen 500 mg tablet 1,000 mg PO DIRECTED PRN Pain 05/16/22 05/16/22 History (Tylenol Extra Strength) ibuprofen 200 mg tablet (Advil) 400 mg PO DIRECTED PRN Pain 05/16/22 05/16/22 History Past Med/Surg History Medical History 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 BEING TOO LOW> WAS ON PREDNISONE FOR A LONG TIME> NOW RESOLVED Migraine Surgical History Fusion of spine cervical> FULL ROM PER PATIENT H/O arthroscopic knee surgery left History of arthroscopy RT/LEFT SHOULDERS History of carpal tunnel release +ulnar nerve release Right (12/2019) History of colonoscopy Slow to wake up after anesthesia [place] teeth removed Family History Father Diabetes Other Cancer Hypertension Myocardial infarction No family history of adverse response to anesthesia Stroke Social History Smoking Status: Never smoker Second Hand Exposure: Yes (IN THE PAST); Hx Alcohol Use: Yes Alcohol type: beer and wine Hx Substance Use: No Preferred Language: Bhutanese Communication Ability: Effective Sand Slinger Operator Required: No Beliefs That Will Affect Care: None Current Living Situation: Spouse Feels Safe at Home: Yes Assistive Devices: Walker Results & Data Results & Data ([facility] [place]) Vital Signs (Past 12 Hours) Vital Signs Temp Pulse Pulse Resp BP BP Pulse Ox 05/16/22 23:52 88 17 130/71 96 05/16/22 19:44 83 19 122/72 96 05/16/22 19:50 77 18 97 05/16/22 19:45 36.8 C 108 H 18 132/80 96 O2 Del Method 05/16/22 23:52 Room Air 05/16/22 19:44 Room Air 05/16/22 19:50 Room Air 05/16/22 19:45 Room Air PG Care Time/CCT Total # of Minutes Spent Total Time Spent with Patient: Total time spent is greater than 50% in coordination of care (as documented) at patient's floor/unit and/or counseling patient: Coding
[2022-05-17] MEDS ORDERED: POLYETHYLENE (MIRALAX) 17 GM PACK PO PRN (00:51)
[2022-05-17] MEDS ORDERED: POLYETHYLENE (MIRALAX) 17 GM PACK PO STA (01:07)
[2022-05-17] MEDS ORDERED: LACTATED RINGER'S 1,000 ML IV SCH (02:46)
[2022-05-17] MEDS ORDERED: PNEUMOCOCCAL POLYSACCHARIDES 25 MCG/0.5 ML VIAL/SYR IM ONE (02:53)
[2022-05-17 06:58] LABS: Hematocrit (blood only) 37.8 % (34.1-44.9); Hemoglobin 13.1 g/dl (12.0-16.0); Mean Corpuscular Hemoglobin 30.6 pg (25.0-34.0); Mean Corpuscular Hgb Conc 34.7 g/dL (32.0-36.0); Mean Corpuscular Volume 88.3 fL (80.0-100.0); Platelet Count 1 K/uL (130-400); RDW Coefficient of Variation 12.5 % (11.5-14.5); Red Blood Count 4.28 M/uL (3.93-5.22); White Blood Count 7.67 K/ul (4.8-10.8)
[2022-05-17 07:07] LABS: BUN Creatinine Ratio 30.5 (10-20); Bilirubin Direct 0.2 mg/dl (0-0.2); Bilirubin,Total 1.1 mg/dl (0.2-1.0); Calcium 8.8 mg/dl (8.5-10.1); Creatinine Clr Calc Pharmacy 71.7 ml/min; Est GFR (African American) 111.5 ml/min; Est GFR (Non-African American) 96.2 ml/min; Potassium 4.1 mmol/L (3.5-5.1); Total Protein 6.8 gm/dl (6.0-8.3)
[2022-05-17 07:17] LABS: Platelet Estimate Signific. Decreased (Normal)
[2022-05-17 07:45] LABS: Lyme Ab IgG w/WB Rflx Negative (Negative); Lyme Ab IgM w/WB Rflx Negative (Negative)
--- NOTE | 2022-05-17 07:47 | CT Scan Report ---
HEAD CT NONCONTRAST CT DOSE: 537.48 mGy.cm HISTORY: Headache. TECHNIQUE: Multiaxial CT images of the head were performed without the use of intravenous contrast. A utomated exposure control was utilized for this study. A dose lowering technique was utilized adheri ng to the principles of ALARA. Comparison: None. Findings: The paranasal sinuses and mastoid air cells are clear. The calvarium and skull base are int act. The ventricles and sulci are within normal limits. There is no mass, hematoma, midline shift, or acute infarct. Impression: No acute intracranial abnormality. ACT 112: Negative or not required by law. Electronically signed by: Mauri Monahan M.D. 05/17/2022 7:46 AM
--- NOTE | 2022-05-17 08:16 | Hospitalist Progress Note ---
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 #Immune Thrombocytopenia (ITP) flare in the setting of recent URI symptoms Patient previously treated for ITP with steroids. Normal bone marrow biopsy at that time. Presented with epistaxis, oral lesions, petechial rash. Patient has had URI symptoms for the last few days which is the likely trigger. Plts 3 at time of admit. Now Plts are 1. No severe bleeding. CT Head negative for acute bleed. On high dose steroids with no response. Add on IVIG 1 gm/kg per hematology. [] Dexamethasone 40 mg IV daily [] IVIG 1 gm/kg x1, repeat tomorrow if Plts <10 [] Heme consult - appreciate recs [] AM CBC FENGI - Gentle IVF at 100mL/hr x 1L, electrolytes WNL, Regular diet as tolerated DVT ppx - No chemoprophylaxis given severe thrombocytopenia Code status - Full Dispo -Admit to PCU Admission and Anticipated Discharge Date Admission Date: May 16, 2022 Supervising Physician Co-Signing Physician Notes Attending attestation Pt seen and examined in concert with Dr. Elaine. In agreement with the documented findings as noted in the resident documentation with any exceptions or additions as noted here. No acute complaints, stable petechial rash. VS, nursing notes reviewed. On examination, S1/S2 nl RRR no MCG. CTAB. Abd NT/ND BS+ve ITP - heme/onc consult - continue steroid therapy and start IVIG, monitor CBC daily. Else see resident documentation as noted. Subjective Patient notes that she is doing well. Reports continued petechial rash bilateral inner thighs and legs. No CP/SOB/calf pain. Overall feels well. Review of Systems Review of Systems: See HPI Physical Exam Physical Exam: General: patient resting comfortably, NAD, non-toxic in appearance, alert and oriented Skin: warm, dry, intact, petechial rash noted on thighs, legs and arms bilaterally, HEENT: NC/AT, anicteric sclera, conjunctiva without injection Heart: +S1/S2, regular, no m/r/g Lungs: equal air entry bilaterally, no rales/rhonchi/wheezes Abd: soft, NT/ND, Ext: no calf tenderness Neuro: nonfocal, speech intact, no facial droop, spontaneously moving all extremities Results & Data Results & Data ([facility]) Vital Signs (Past 12 Hours) Vital Signs Temp Pulse Resp BP Pulse Ox O2 Del Method 05/17/22 07:22 36.6 C 79 18 105/62 96 Room Air 05/17/22 02:40 36.8 C 76 20 128/66 96 Room Air 05/17/22 01:00 88 16 111/66 95 Room Air 05/16/22 23:52 88 17 130/71 96 Room Air Laboratory Results 05/17/22 05/17/22 05/17/22 Range/Units 06:14 06:14 06:14 WBC (4.8-10.8) K/ul RBC (3.93-5.22) M/uL Hgb (12.0-16.0) g/dl POC Hgb (12.0-16.0) g/dl Hct (34.1-44.9) % POC Hct (37-47) % MCV (80.0-100.0) fL MCH (25.0-34.0) pg MCHC (32.0-36.0) g/dL RDW Std Deviation (36.4-46.3) fL RDW Coeff of Ronnie (11.5-14.5) % Plt Count (130-400) K/uL Immature Gran % (Auto) % Neut % (Auto) % Lymph % (Auto) % [place] % (Auto) % Eos % (Auto) % Baso % (Auto) % Neut # (Auto) (1.4-6.5) K/uL Lymph # (Auto) (1.2-3.4) K/uL [place] # (Auto) (0.24-0.82) K/uL Eos # (Auto) (0-0.50) K/uL Baso # (Auto) (0-0.2) K/uL Immature Gran # (Auto) (0.00-0.02) K/uL Platelet Estimate (Normal) Peripher Smr Path Cons PT INR APTT PTT Ratio POC Sodium (135-144) mmol/L Sodium 138 (136-145) mmol/L POC Potassium (3.3-5.0) mmol/L Potassium 4.1 POC Chloride (101-112) mmol/L Chloride 106 (98-107) mmol/L Carbon Dioxide 26 (21-32) mmol/L POC Total CO2 (24-31) mmol/L Anion Gap 6 (3-11) POC Anion Gap (16-25) mmol/L POC BUN (7-18) mg/dl BUN 18 (6-23) mg/dl Creatinine 0.59 L (0.6-1.2) mg/dl POC Creatinine (0.6-1.3) mg/dl Est Cr Clr Drug Dosing 71.7 ml/min Est GFR ( Amer) 111.5 ml/min Est GFR (Non-Af Amer) 96.2 ml/min BUN/Creatinine Ratio 30.5 H (10-20) Glucose 165 H (70-99(Fasting)) mg/dl POC Glucose (other) (70-99) mg/dl Calcium 8.8 (8.5-10.1) mg/dl POC Ioniz Calcium Lexii (1.12-1.32) mmol/l Total Bilirubin 1.1 H (0.2-1.0) mg/dl Direct Bilirubin 0.2 (0-0.2) mg/dl AST 44 H (13-39) U/L ALT 42 (7-52) U/L Alkaline Phosphatase 113 H (34-104) U/L Total Protein 6.8 (6.0-8.3) gm/dl Albumin 4.0 (3.4-5.0) gm/dl Lyme Disease IgG Ab (Negative) Lyme Disease IgM Ab (Negative) Hepatitis C Ab (EIA) Pending Pending Hep C Ab Signal/Cutoff Pending Pending SARS-CoV-2, RNA, NAAT (NEGATIVE) 05/17/22 05/17/22 05/16/22 Range/Units 06:14 06:14 22:49 WBC 7.67 (4.8-10.8) K/ul RBC 4.28 (3.93-5.22) M/uL Hgb 13.1 (12.0-16.0) g/dl POC Hgb (12.0-16.0) g/dl Hct 37.8 (34.1-44.9) % POC Hct (37-47) % MCV 88.3 (80.0-100.0) fL MCH 30.6 (25.0-34.0) pg MCHC 34.7 (32.0-36.0) g/dL RDW Std Deviation 41.0 (36.4-46.3) fL RDW Coeff of Ronnie 12.5 (11.5-14.5) % Plt Count 1 L* D (130-400) K/uL Immature Gran % (Auto) % Neut % (Auto) % Lymph % (Auto) % [place] % (Auto) % Eos % (Auto) % Baso % (Auto) % Neut # (Auto) (1.4-6.5) K/uL Lymph # (Auto) (1.2-3.4) K/uL [place] # (Auto) (0.24-0.82) K/uL Eos # (Auto) (0-0.50) K/uL Baso # (Auto) (0-0.2) K/uL Immature Gran # (Auto) (0.00-0.02) K/uL Platelet Estimate Signific. Decreased L (Normal) Peripher Smr Path Cons Pending PT INR APTT PTT Ratio POC Sodium (135-144) mmol/L Sodium (136-145) mmol/L POC Potassium (3.3-5.0) mmol/L Potassium POC Chloride (101-112) mmol/L Chloride (98-107) mmol/L Carbon Dioxide (21-32) mmol/L POC Total CO2 (24-31) mmol/L Anion Gap (3-11) POC Anion Gap (16-25) mmol/L POC BUN (7-18) mg/dl BUN (6-23) mg/dl Creatinine (0.6-1.2) mg/dl POC Creatinine (0.6-1.3) mg/dl Est Cr Clr Drug Dosing ml/min Est GFR ( Amer) ml/min Est GFR (Non-Af Amer) ml/min BUN/Creatinine Ratio (10-20) Glucose (70-99(Fasting)) mg/dl POC Glucose (other) (70-99) mg/dl Calcium (8.5-10.1) mg/dl POC Ioniz Calcium Lexii (1.12-1.32) mmol/l Total Bilirubin (0.2-1.0) mg/dl Direct Bilirubin (0-0.2) mg/dl AST (13-39) U/L ALT (7-52) U/L Alkaline Phosphatase (34-104) U/L Total Protein (6.0-8.3) gm/dl Albumin (3.4-5.0) gm/dl Lyme Disease IgG Ab Negative (Negative) Lyme Disease IgM Ab Negative (Negative) Hepatitis C Ab (EIA) Hep C Ab Signal/Cutoff SARS-CoV-2, RNA, NAAT NEGATIVE (NEGATIVE) 05/16/22 05/16/22 05/16/22 Range/Units 22:16 21:14 21:02 WBC (4.8-10.8) K/ul RBC (3.93-5.22) M/uL Hgb (12.0-16.0) g/dl POC Hgb 13.9 (12.0-16.0) g/dl Hct (34.1-44.9) % POC Hct 41 (37-47) % MCV (80.0-100.0) fL MCH (25.0-34.0) pg MCHC (32.0-36.0) g/dL RDW Std Deviation (36.4-46.3) fL RDW Coeff of Ronnie (11.5-14.5) % Plt Count (130-400) K/uL Immature Gran % (Auto) % Neut % (Auto) % Lymph % (Auto) % [place] % (Auto) % Eos % (Auto) % Baso % (Auto) % Neut # (Auto) (1.4-6.5) K/uL Lymph # (Auto) (1.2-3.4) K/uL [place] # (Auto) (0.24-0.82) K/uL Eos # (Auto) (0-0.50) K/uL Baso # (Auto) (0-0.2) K/uL Immature Gran # (Auto) (0.00-0.02) K/uL Platelet Estimate (Normal) Peripher Smr Path Cons PT 10.6 INR 1.0 APTT 24.5 PTT Ratio 0.9 POC Sodium 140 (135-144) mmol/L Sodium (136-145) mmol/L POC Potassium 3.8 (3.3-5.0) mmol/L Potassium 3.7 POC Chloride 104 (101-112) mmol/L Chloride (98-107) mmol/L Carbon Dioxide (21-32) mmol/L POC Total CO2 27 (24-31) mmol/L Anion Gap (3-11) POC Anion Gap 14.0 L (16-25) mmol/L POC BUN 23 H (7-18) mg/dl BUN (6-23) mg/dl Creatinine (0.6-1.2) mg/dl POC Creatinine 0.7 (0.6-1.3) mg/dl Est Cr Clr Drug Dosing ml/min Est GFR ( Amer) ml/min Est GFR (Non-Af Amer) ml/min BUN/Creatinine Ratio (10-20) Glucose (70-99(Fasting)) mg/dl POC Glucose (other) 110 H (70-99) mg/dl Calcium (8.5-10.1) mg/dl POC Ioniz Calcium Lexii 1.19 (1.12-1.32) mmol/l Total Bilirubin (0.2-1.0) mg/dl Direct Bilirubin (0-0.2) mg/dl AST (13-39) U/L ALT (7-52) U/L Alkaline Phosphatase (34-104) U/L Total Protein (6.0-8.3) gm/dl Albumin (3.4-5.0) gm/dl Lyme Disease IgG Ab (Negative) Lyme Disease IgM Ab (Negative) Hepatitis C Ab (EIA) Hep C Ab Signal/Cutoff SARS-CoV-2, RNA, NAAT (NEGATIVE) 05/16/22 05/16/22 05/16/22 Range/Units 20:05 20:05 20:05 WBC 9.55 (4.8-10.8) K/ul RBC 4.52 (3.93-5.22) M/uL Hgb 13.7 (12.0-16.0) g/dl POC Hgb (12.0-16.0) g/dl Hct 41.3 (34.1-44.9) % POC Hct (37-47) % MCV 91.4 (80.0-100.0) fL MCH 30.3 (25.0-34.0) pg MCHC 33.2 (32.0-36.0) g/dL RDW Std Deviation 41.7 (36.4-46.3) fL RDW Coeff of Ronnie 12.5 (11.5-14.5) % Plt Count 3 L* (130-400) K/uL Immature Gran % (Auto) 0.2 % Neut % (Auto) 78.4 % Lymph % (Auto) 12.8 % [place] % (Auto) 6.4 % Eos % (Auto) 2.1 % Baso % (Auto) 0.1 % Neut # (Auto) 7.49 H (1.4-6.5) K/uL Lymph # (Auto) 1.22 (1.2-3.4) K/uL [place] # (Auto) 0.61 (0.24-0.82) K/uL Eos # (Auto) 0.20 (0-0.50) K/uL Baso # (Auto) 0.01 (0-0.2) K/uL Immature Gran # (Auto) 0.02 (0.00-0.02) K/uL Platelet Estimate Signific. Decreased L (Normal) Peripher Smr Path Cons PT Cancelled INR Cancelled APTT Cancelled PTT Ratio Cancelled POC Sodium (135-144) mmol/L Sodium 137 (136-145) mmol/L POC Potassium (3.3-5.0) mmol/L Potassium TNP POC Chloride (101-112) mmol/L Chloride 104 (98-107) mmol/L Carbon Dioxide 27 (21-32) mmol/L POC Total CO2 (24-31) mmol/L Anion Gap 6 (3-11) POC Anion Gap (16-25) mmol/L POC BUN (7-18) mg/dl BUN 21 (6-23) mg/dl Creatinine 0.75 (0.6-1.2) mg/dl POC Creatinine (0.6-1.3) mg/dl Est Cr Clr Drug Dosing 56.4 ml/min Est GFR ( Amer) 96.9 ml/min Est GFR (Non-Af Amer) 83.6 ml/min BUN/Creatinine Ratio 28.0 H (10-20) Glucose 110 H (70-99(Fasting)) mg/dl POC Glucose (other) (70-99) mg/dl Calcium 9.0 (8.5-10.1) mg/dl POC Ioniz Calcium Lexii (1.12-1.32) mmol/l Total Bilirubin (0.2-1.0) mg/dl Direct Bilirubin (0-0.2) mg/dl AST (13-39) U/L ALT (7-52) U/L Alkaline Phosphatase (34-104) U/L Total Protein (6.0-8.3) gm/dl Albumin (3.4-5.0) gm/dl Lyme Disease IgG Ab (Negative) Lyme Disease IgM Ab (Negative) Hepatitis C Ab (EIA) Hep C Ab Signal/Cutoff SARS-CoV-2, RNA, NAAT (NEGATIVE) Diagnostic Findings Head CT 05/16/22 21:[address] DOSE: 537.48 mGy.cm HISTORY: Headache. TECHNIQUE: Multiaxial CT images of the head were performed without the use of intravenous contrast. Automated exposure control was utilized for this study. A dose lowering technique was utilized adhering to the principles of ALARA. Comparison: None. Findings: The paranasal sinuses and mastoid air cells are clear. The calvarium and skull base are intact. The ventricles and sulci are within normal limits. There is no mass, hematoma, midline shift, or acute infarct. Impression: No acute intracranial abnormality. Resident Activity Tracking Resident Involvement: Resident Care Provided Care Provided: Adult [facility]
[2022-05-17] MEDS ORDERED: DEXAMETHASONE SOD INJ 4 MG/ML VIAL IV SCH (09:00)
[2022-05-17] MEDS ORDERED: IMMUNE GLOBULIN (HUMAN) SOLN IV ONE (09:49)
[2022-05-17] MEDS: dexAMETHasone 40 MG in DEXTROSE 5% 25 ML IV SCH (11:12)
[2022-05-17] MEDS ORDERED: IMMUN GLOBG(IGG)/MALT/IGA OV50 100 ML IV ONE (12:00)
[2022-05-17] MEDS ORDERED: Octagam 10% IVIG 5 gram bottle IV SCH (12:00)
[2022-05-17] MEDS ORDERED: IMMUN GLOBG(IGG)/MALT/IGA OV50 100 ML IV SCH (13:30)
[2022-05-17] MEDS: IMMUN GLOBG(IGG)/MALT/IGA OV50 200 ML IV SCH ×2 (14:42→19:12)
[2022-05-17] MEDS ORDERED: IMMUN GLOBG(IGG)/MALT/IGA OV50 200 ML IV SCH (16:30)
[2022-05-17] MEDS: ACETAMINOPHEN 500 MG TAB PO PRN (17:09)
[2022-05-17] MEDS ORDERED: Nursing to Pharmacy Communication SCH (17:15)
--- NOTE | 2022-05-17 17:27 | Hospitalist Progress Note ---
Date of Service May 17, 2022 Assessment & Plan Admission and Anticipated Discharge Date Admission Date: May 16, 2022 Results & Data Results & Data ([facility]) Vital Signs (Past 12 Hours) Vital Signs Temp Pulse Pulse Resp BP Pulse Ox O2 Del Method 05/17/22 16:23 85 05/17/22 16:19 36.8 C 75 18 107/67 97 Room Air 05/17/22 12:43 36.7 C 85 18 118/65 96 Room Air 05/17/22 09:55 70 05/17/22 07:22 36.6 C 79 18 105/62 96 Room Air PG Care Time/CCT Total # of Minutes Spent Total Time Spent with Patient: Total time spent is greater than 50% in coordination of care (as documented) at patient's floor/unit and/or counseling patient: Coding
--- NOTE | 2022-05-17 17:30 | Consultation ---
Date of Consultation May 17, 2022 Assessment & Plan (1) Thrombocytopenia: Patient has a history of apparent ITP in 1993 treated with prolonged steroids but in apparent remission for the most part in the interim. There may have been an episode of mild thrombocytopenia not needing pharmacologic intervention last summer. She had recent URI but records do not suggest that she received antibiotics or that there has been any other new medication or exposure of note. Would be worthwhile to rigorously exclude that on follow-up history with the patient Severe thrombocytopenia in the absence of changes in white blood cells or red blood cells certainly would be consistent with immune thrombocytopenia. This can also be seen in the setting of a lymphoproliferative disorder but there is no description of adenopathy, "B symptoms or any other direct or indirect suggestion of that." Pathologist review is pending but lab review does seem to exclude artifactual thrombocytopenia noting the platelets are clearly decreased and not mentioning any signs of clumping Core therapy would be dexamethasone 40 mg daily for 4 days. Given the lack of an immediate response, immunoglobulin was added today. Would continue the full course of dexamethasone even if her platelets start to show early recovery but would stop after the fourth dose. Repeat immunoglobulins tomorrow if there is not at least a double-digit recovery of her platelets in the interim. Need for long-term management will depend on the degree and durability of her recovery. With marginal elevation of liver enzymes it may be reasonable to do an abdominal ultrasound and if that were to show splenomegaly or any suggestions of adenopathy, may need to consider alternative indications for additional management beyond the acute stabilization. Technically, an HIV screen should be included in the work-up for ITP - can check to see if that has been performed previously but if not would camp counselor the patient that this is simply a routine recommendation that does not imply any judgment with respect to her possible exposures. It would be worthwhile to check a B12 level to be absolutely sure that is in good range and I would empirically supplement her folic acid. SARS-CoV2 screen was negative which importantly rules out a COVID-19 infection as an alternative etiology. (2) Lung nodule: Patient is a non-smoker. She did have a lung nodule noted on 11/2021 CT scan of the chest. Doubtful that that is related to the current status but a repeat CT chest sometime this month was recommended. (3) Total bilirubin, elevated: Marginal elevation of bilirubin along with a marginal elevation of AST and alk phos are all nonspecific and may be nothing more than a modest liver irritation from her recent viral infection. I would suggest an abdominal ultrasound to both assess the liver and spleen to be sure there is not some other process that needs further evaluation. Doubtful that this overlaps with her thrombocytopenia unless there is some sort of evolving lymphoproliferative disorder. Plan 1. Complete dexamethasone 40 mg daily for 4 days. Standard protocol does not suggest need for extension of steroids beyond that. 2. She was to receive intravenous immunoglobulin 1 g/kg today. If there is not evidence of a significant recovery of platelets by tomorrow morning could repeat that x1 tomorrow 3. Would empirically supplement folic acid at 1 mg daily (accelerated hemtopoiesis may deplete her stores). Would check B12 and screen for HIV if the latter has not been performed. 4. Would consider an abdominal ultrasound to assess the liver given the modest liver enzyme elevations as well as spleen size as a quick screen for any gross suggestions of lymphoproliferative or other disorders that might need further evaluation 5. Do not utilize "prophylactic" platelet transfusions even for low single digit platelet counts in the setting of ITP unless there is significant clinical bleeding as the platelet transfusions are likely to be quickly consumed by the auto-antibody 6. History does not suggest any recent change in medications or antibiotics for the URI but would be sure to rule out more completely in speaking to the patient 7. Beyond the immediate stabilization, degree and durability of response as well as the presence or absence of any suggestions of lymphoproliferative disorder will guide the consideration for longer-term therapy. In general splenectomy is avoided except perhaps in very young patients. Rituximab has been somewhat problematic in the COVID-19 era because of the attendant immunosuppression. If she does not achieve a consistent remission with short- term steroids would consider the use of thrombopoietin receptor agonist therapy. 8. Previously noted lung nodule is probably unrelated to the current presentation but does warrant a repeat chest CT at some time in the not too distant future. That will certainly be done as an outpatient. History of Present Illness Reason for Consultation: Thrombocytopenia Attending Physician: Harry Vuong MD History of Present Illness Patient has a history of ITP in 1993 treated with a prolonged course of steroids. Although there have been interim issues of a summer epsiode of apparent mild thrombocytopenia, she has not had significant issues until presenting to the emergency department yesterday with a platelet count of 3000, petechiae and some minimal buccal hemorrhage in the wake of a recent mild upper respiratory infection. She did have a slight headache but CT of the head was unremarkable. She is apparently not have dramatic bleeding. This is an electronic consult based on review of the available records. I have not had the opportunity speak with the patient directly nor to examine her. Records indicate that she is currently having no major threatening bleeding. There is apparently no suggestion of peripheral adenopathy or anything consistent with a myeloproliferative disorder. Patient is a non-smoker. Incidental note is made of a subcentimeter pulmonary nodule described on a 12/03/2021 CT scan of the chest with 6-month follow-up recommended. Allergies Allergy/AdvReac Type Severity Reaction Status Date / Time No Known Allergies Allergy Verified 05/16/22 20:16 Home Medications Medication Instructions Recorded Confirmed Type [id number] 250 1 tab PO Q6H PRN Pain 12/19/19 05/16/22 History mg-250 mg-65 mg tablet (Excedrin Migraine) polyethylene glycol 3350 17 gram 17 g PO DAILY 08/18/21 05/16/22 History oral powder packet (ClearLax) acetaminophen 500 mg tablet 1,000 mg PO DIRECTED PRN Pain 05/16/22 05/16/22 History (Tylenol Extra Strength) ibuprofen 200 mg tablet (Advil) 400 mg PO DIRECTED PRN Pain 05/16/22 05/16/22 History Patient History Medical History 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 BEING TOO LOW> WAS ON PREDNISONE FOR A LONG TIME> NOW RESOLVED Migraine Surgical History Fusion of spine cervical> FULL ROM PER PATIENT H/O arthroscopic knee surgery left History of arthroscopy RT/LEFT SHOULDERS History of carpal tunnel release +ulnar nerve release Right (12/2019) History of colonoscopy Slow to wake up after anesthesia [place] teeth removed Family History Father Diabetes Other Cancer Hypertension Myocardial infarction No family history of adverse response to anesthesia Stroke Social History Smoking Status: Never smoker Second Hand Exposure: Yes; Hx Alcohol Use: Yes Alcohol type: beer and wine Hx Substance Use: No Preferred Language: [place] Communication Ability: Effective Category Planner Required: No Beliefs That Will Affect Care: None Current Living Situation: Spouse Feels Safe at Home: Yes Safety Concerns: Feels Safe At This Time Assistive Devices: Glasses Physical Exam Physical Exam: Vital signs are stable. By description her exam is unremarkable except for the petechiae and buccal hemorrhage Results & Data ([facility]) Vital Signs (Past 12 Hours) Vital Signs Temp Pulse Pulse Resp BP Pulse Ox O2 Del Method 05/17/22 16:23 85 05/17/22 16:19 36.8 C 75 18 107/67 97 Room Air 05/17/22 12:43 36.7 C 85 18 118/65 96 Room Air 05/17/22 09:55 70 05/17/22 07:22 36.6 C 79 18 105/62 96 Room Air Laboratory Results Abnormal lab results 05/16/22 05/16/22 05/16/22 Range/Units 20:05 20:05 22:16 Plt Count 3 L* (130-400) K/uL Neut # (Auto) 7.49 H (1.4-6.5) K/uL Platelet Estimate Signific. Decreased L (Normal) POC Anion Gap 14.0 L (16-25) mmol/L POC BUN 23 H (7-18) mg/dl Creatinine (0.6-1.2) mg/dl BUN/Creatinine Ratio 28.0 H (10-20) Glucose 110 H (70-99(Fasting)) mg/dl POC Glucose (other) 110 H (70-99) mg/dl Total Bilirubin (0.2-1.0) mg/dl AST (13-39) U/L Alkaline Phosphatase (34-104) U/L 05/17/22 05/17/22 Range/Units 06:14 06:14 Plt Count 1 L* D (130-400) K/uL Neut # (Auto) (1.4-6.5) K/uL Platelet Estimate Signific. Decreased L (Normal) POC Anion Gap (16-25) mmol/L POC BUN (7-18) mg/dl Creatinine 0.59 L (0.6-1.2) mg/dl BUN/Creatinine Ratio 30.5 H (10-20) Glucose 165 H (70-99(Fasting)) mg/dl POC Glucose (other) (70-99) mg/dl Total Bilirubin 1.1 H (0.2-1.0) mg/dl AST 44 H (13-39) U/L Alkaline Phosphatase 113 H (34-104) U/L Diagnostic Findings Head CT 05/16/22 21:[address] DOSE: 537.48 mGy.cm HISTORY: Headache. TECHNIQUE: Multiaxial CT images of the head were performed without the use of intravenous contrast. Automated exposure control was utilized for this study. A dose lowering technique was utilized adhering to the principles of ALARA. Comparison: None. Findings: The paranasal sinuses and mastoid air cells are clear. The calvarium and skull base are intact. The ventricles and sulci are within normal limits. There is no mass, hematoma, midline shift, or acute infarct. Impression: No acute intracranial abnormality. ACT 112: Negative or not required by law. Electronically signed by: Mauri Monahan M.D. 05/17/2022 7:46 AM PG Care Time/CCT Total # of Minutes Spent Total Time Spent with Patient: Total time spent is greater than 50% in coordination of care (as documented) at patient's floor/unit and/or counseling patient: Coding Level of Care Code 62544 Inpt Consult Level 2 History Problem Focused Medical Decision Making High Complexity Diagnoses Thrombocytopenia D69.6 Lung nodule R91.1 Total bilirubin, elevated R17
[2022-05-17] MEDS: POLYETHYLENE (MIRALAX) 17 GM PACK PO PRN (20:40)
[2022-05-18] MEDS: ACETAMINOPHEN 500 MG TAB PO PRN ×2 (02:14→07:48)
[2022-05-18 05:11] LABS: Hematocrit (blood only) 33.9 % (34.1-44.9); Hemoglobin 11.7 g/dl (12.0-16.0); Mean Corpuscular Hemoglobin 30.6 pg (25.0-34.0); Mean Corpuscular Hgb Conc 34.5 g/dL (32.0-36.0); Mean Corpuscular Volume 88.7 fL (80.0-100.0); Mean Platelet Volume 13.6 fL (9.4-12.3); Platelet Count 17 K/uL (130-400); RDW Coefficient of Variation 12.3 % (11.5-14.5); RDW Standard Deviation 39.9 fL (36.4-46.3); Red Blood Count 3.82 M/uL (3.93-5.22)
[2022-05-18 05:19] LABS: Albumin Globulin Ratio 0.9 (0.9-2); Albumin Level 3.5 gm/dl (3.4-5.0); BUN Creatinine Ratio 32.8 (10-20); Calcium 8.7 mg/dl (8.5-10.1); Creatinine Clr Calc Pharmacy 69.4 ml/min; Est GFR (African American) 110.3 ml/min; Est GFR (Non-African American) 95.1 ml/min; Potassium 4.1 mmol/L (3.5-5.1); Total Protein 7.5 gm/dl (6.0-8.3)
--- NOTE | 2022-05-18 07:10 | Hospitalist Progress Note ---
Date of Service May 18, 2022 Assessment & Plan (1) Thrombocytopenia: Plan: Marine Izaguirre is a 67 y/o female with a PMHx of ITP with normal bone marrow biopsy which resolved with prednisone 25 years ago here for evaluation of petechial rash, epistaxis, and oral lesions in the setting of recent URI admitted for severe thrombocytopenia and started on high dose steroids now s/p IVIG x1 with improvement of Plt count. #Immune Thrombocytopenia (ITP) flare in the setting of recent URI symptoms Patient previously treated for ITP with steroids. Normal bone marrow biopsy at that time. Presented with epistaxis, oral lesions, petechial rash. Patient has had URI symptoms for the last few days which is the likely trigger. Plts 3k at time of admit decreased to 1k despite high dose steroids. S/p IVIG 1 gm/kg per hematology with double digit response - Plts 17k. No severe bleeding. CT Head negative for acute bleed. ITP work up includes HIV screening. B12 WNL. Empirically give folate. 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 Recommend close f/u with PCP and hematology. [] Dexamethasone 40 mg IV daily x4 days [final dose: 05/19/22] [] IVIG 1 gm/kg x1, double digit response, no indication for repeat IVIG at this time [] Heme consult - appreciate recs [] AM CBC [] Folic Acid 1 mg QD [] HIV screening #Elevated Liver Enzyme Patient had elevated LFTs on admit which have since normalized. Hold off on abdominal US for now. FENGI - Tolerating PO, Regular diet DVT ppx - No chemoprophylaxis given severe thrombocytopenia Code status - Full Dispo -Admit to PCU Admission and Anticipated Discharge Date Admission Date: May 16, 2022 Supervising Physician Co-Signing Physician Notes I personally examined the patient and verified all ram points of history and exam, discussed case, and agree with decision making with Dr Elaine. feeling fine. working on [employer] for grandchild vitals noted nad heent nc at mmm breathing unlabored no accessory muscles good effort skin no rashes no pallor or icterus recurrent ITP - improving. continue steroids, had IVIG yesterday. otherwise as above Subjective Patient notes that she is doing well. No complaints. She denies any blood in her urine or stool. No new bruising. Review of Systems Review of Systems: See HPI Physical Exam Physical Exam: General: patient resting comfortably, NAD, non-toxic in appearance, alert and oriented Skin: warm, dry, intact, petechial rash noted on thighs, legs and arms bilaterally, HEENT: NC/AT, anicteric sclera, conjunctiva without injection Heart: +S1/S2, regular, no m/r/g Lungs: equal air entry bilaterally, no rales/rhonchi/wheezes Abd: soft, NT/ND, Ext: no calf tenderness Neuro: nonfocal, speech intact, no facial droop, spontaneously moving all extremities Results & Data Results & Data ([facility]) Vital Signs (Past 12 Hours) Vital Signs Temp Pulse Pulse Resp BP Pulse Ox O2 Del Method 05/18/22 04:34 36.6 C 80 18 102/51 L 95 Room Air 05/17/22 23:28 36.7 C 83 16 110/61 96 Room Air 05/17/22 22:58 69 05/17/22 20:37 36.7 C 65 16 100/60 96 Room Air Laboratory Results 05/18/22 05/18/22 05/18/22 Range/Units 04:24 04:24 04:24 WBC (4.8-10.8) K/ul RBC (3.93-5.22) M/uL Hgb (12.0-16.0) g/dl Hct (34.1-44.9) % MCV (80.0-100.0) fL MCH (25.0-34.0) pg MCHC (32.0-36.0) g/dL RDW Std Deviation (36.4-46.3) fL RDW Coeff of Ronnie (11.5-14.5) % Plt Count (130-400) K/uL MPV (9.4-12.3) fL Platelet Estimate (Normal) Sodium 135 L (136-145) mmol/L Potassium 4.1 (3.5-5.1) mmol/L Chloride 106 (98-107) mmol/L Carbon Dioxide 24 (21-32) mmol/L Anion Gap 5 (3-11) BUN 20 (6-23) mg/dl Creatinine 0.61 (0.6-1.2) mg/dl Est Cr Clr Drug Dosing 69.4 ml/min Est GFR ( Amer) 110.3 ml/min Est GFR (Non-Af Amer) 95.1 ml/min BUN/Creatinine Ratio 32.8 H (10-20) Glucose 133 H (70-99(Fasting)) mg/dl Calcium 8.7 (8.5-10.1) mg/dl Total Bilirubin 1.0 (0.2-1.0) mg/dl AST 37 (13-39) U/L ALT 41 (7-52) U/L Alkaline Phosphatase 90 (34-104) U/L Lactate Dehydrogenase 125 (86-244) U/L Total Protein 7.5 (6.0-8.3) gm/dl Albumin 3.5 (3.4-5.0) gm/dl Globulin 4.0 (2.5-4.0) gm/dl Albumin/Globulin Ratio 0.9 (0.9-2) Vitamin B12 198 (180-914) pg/ml Lyme Disease IgG Ab (Negative) Lyme Disease IgM Ab (Negative) 05/18/22 05/17/22 05/17/22 Range/Units 04:24 06:14 06:14 WBC 15.30 H (4.8-10.8) K/ul RBC 3.82 L (3.93-5.22) M/uL Hgb 11.7 L (12.0-16.0) g/dl Hct 33.9 L (34.1-44.9) % MCV 88.7 (80.0-100.0) fL MCH 30.6 (25.0-34.0) pg MCHC 34.5 (32.0-36.0) g/dL RDW Std Deviation 39.9 (36.4-46.3) fL RDW Coeff of Ronnie 12.3 (11.5-14.5) % Plt Count 17 L* D (130-400) K/uL MPV 13.6 H (9.4-12.3) fL Platelet Estimate Signific. Decreased L (Normal) Sodium (136-145) mmol/L Potassium (3.5-5.1) mmol/L Chloride (98-107) mmol/L Carbon Dioxide (21-32) mmol/L Anion Gap (3-11) BUN (6-23) mg/dl Creatinine (0.6-1.2) mg/dl Est Cr Clr Drug Dosing ml/min Est GFR ( Amer) ml/min Est GFR (Non-Af Amer) ml/min BUN/Creatinine Ratio (10-20) Glucose (70-99(Fasting)) mg/dl Calcium (8.5-10.1) mg/dl Total Bilirubin (0.2-1.0) mg/dl AST (13-39) U/L ALT (7-52) U/L Alkaline Phosphatase (34-104) U/L Lactate Dehydrogenase (86-244) U/L Total Protein (6.0-8.3) gm/dl Albumin (3.4-5.0) gm/dl Globulin (2.5-4.0) gm/dl Albumin/Globulin Ratio (0.9-2) Vitamin B12 (180-914) pg/ml Lyme Disease IgG Ab Negative (Negative) Lyme Disease IgM Ab Negative (Negative) Resident Activity Tracking Resident Involvement: Resident Care Provided Care Provided: Adult [facility]
[2022-05-18] MEDS: FOLIC ACID 1 MG TAB PO SCH (08:22)
[2022-05-18] MEDS: dexAMETHasone 40 MG in DEXTROSE 5% 25 ML IV SCH (11:17)
--- NOTE | 2022-05-18 18:59 | Billing Data ---
Date of Service May 18, 2022 Coding Level of Care Code 84964 Subseq Hosp Care Lvl 3
[2022-05-18] MEDS: POLYETHYLENE (MIRALAX) 17 GM PACK PO PRN (21:51)
[2022-05-19 04:58] LABS: Hematocrit (blood only) 33.7 % (34.1-44.9); Hemoglobin 11.5 g/dl (12.0-16.0); Mean Corpuscular Hemoglobin 30.7 pg (25.0-34.0); Mean Corpuscular Hgb Conc 34.1 g/dL (32.0-36.0); Mean Corpuscular Volume 90.1 fL (80.0-100.0); Mean Platelet Volume 11.6 fL (9.4-12.3); Platelet Count 43 K/uL (130-400); RDW Coefficient of Variation 12.5 % (11.5-14.5); RDW Standard Deviation 41.1 fL (36.4-46.3); Red Blood Count 3.74 M/uL (3.93-5.22); White Blood Count 11.39 K/ul (4.8-10.8)
[2022-05-19 05:21] LABS: Albumin Globulin Ratio 0.9 (0.9-2); Albumin Level 3.4 gm/dl (3.4-5.0); BUN Creatinine Ratio 39.3 (10-20); Bilirubin,Total 0.7 mg/dl (0.2-1.0); Calcium 8.5 mg/dl (8.5-10.1); Creatinine Clr Calc Pharmacy 82.8 ml/min; Est GFR (African American) 113.4 ml/min; Est GFR (Non-African American) 97.8 ml/min; Globulin 3.8 gm/dl (2.5-4.0); Total Protein 7.2 gm/dl (6.0-8.3)
--- NOTE | 2022-05-19 07:30 | Discharge Summary ---
Date of Service May 19, 2022 Admission HPI Per Admitting Provider Marine Izaguirre is a 67yo female with remote history of ITP - approximately 25 years ago she had low platelets, purpura and petechiae. She was treated with Prednisone only with resolution. She had a bone marrow biopsy at that time due to concern for possible malignancy but reports normal findings. She was living in [place] at the time. She reports a possible mild relapse this past summer where she developed some easy bruising but was told that her platelets were at the low end of normal at that time. Three days ago patient began to notice a petechial rash on her legs, abdomen and arms, oral lesions as well. She reports some mild epistaxis noted with blowing her nose. Patient has had some URI symptoms over the last few days - cough, headache and sore throat. She reports she has been around her grandson who was recently ill with similar symptoms. No additional complaints at this time. She denies visual disturbance, focal numbness or weakness. No chest pain, SOB, nausea, vomiting or diarrhea. No recent tick bites. In the ER she was treated with Dexamethasone 40mg IV per direction of Hematology. Admission Exam Per Admitting Provider General: patient resting comfortably, NAD, non-toxic in appearance, AA&O x 4 Skin: warm, dry, intact, petechial rash noted on thighs, legs and arms bilaterally, purpuric lesions present on right buccal mucosa as well as left soft palate HEENT: NC/AT, PERRL, EOMI, anicteric sclera, conjunctiva without injection, external ear normal to inspection and nontender, nares patent, moist mucus membranes, dentition intact, no oropharyngeal lesions, neck supple, trachea midline, no LAD, no thyromegaly, no JVD Heart: +S1/S2, regular, no m/r/g Lungs: equal air entry bilaterally, no rales/rhonchi/wheezes Abd: +BS, soft, NT/ND, no masses/organomegaly/ascites Ext: warm, 2+ pulses in UE/LE bilaterally, no clubbing/cyanosis or edema Neuro: nonfocal, patient AA&O x 4, speech intact, no facial droop, moving all extremities on command with equal strength 5/5 Principal Diagnosis ITP Discharge Exam General: well appearing female in NAD, alert and oriented Skin: warm, dry, intact, HEENT: NC/AT, anicteric sclera, conjunctiva without injection Heart: RRR, no m/r/g Lungs: CTAB equal air entry bilaterally, no rales/rhonchi/wheezes Abd: soft, NT/ND, Ext: no calf tenderness, no edema Neuro: nonfocal, speech intact, no facial droop, spontaneously moving all extremities Discharge Data Allergies Allergy/AdvReac Type Severity Reaction Status Date / Time No Known Allergies Allergy Verified 05/16/22 20:16 Consultations 05/16/22 22:44 ED Decision to Admit Stat 05/17/22 02:46 Consult Hematology Routine 05/17/22 11:46 Consult Hematology Routine Ordered Studies Head CT 05/16/22 21:[address] DOSE: 537.48 mGy.cm HISTORY: Headache. TECHNIQUE: Multiaxial CT images of the head were performed without the use of intravenous contrast. Automated exposure control was utilized for this study. A dose lowering technique was utilized adhering to the principles of ALARA. Comparison: None. Findings: The paranasal sinuses and mastoid air cells are clear. The calvarium and skull base are intact. The ventricles and sulci are within normal limits. There is no mass, hematoma, midline shift, or acute infarct. Impression: No acute intracranial abnormality. 05/19/22 05/19/22 05/18/22 Range/Units 04:09 04:09 09:38 WBC 11.39 H (4.8-10.8) K/ul RBC 3.74 L (3.93-5.22) M/uL Hgb 11.5 L (12.0-16.0) g/dl Hct 33.7 L (34.1-44.9) % MCV 90.1 (80.0-100.0) fL MCH 30.7 (25.0-34.0) pg MCHC 34.1 (32.0-36.0) g/dL RDW Std Deviation 41.1 (36.4-46.3) fL RDW Coeff of Ronnie 12.5 (11.5-14.5) % Plt Count 43 L D (130-400) K/uL MPV 11.6 (9.4-12.3) fL Peripher Smr Path Cons Sodium 136 (136-145) mmol/L Potassium 4.0 (3.5-5.1) mmol/L Chloride 106 (98-107) mmol/L Carbon Dioxide 25 (21-32) mmol/L Anion Gap 5 (3-11) BUN 22 (6-23) mg/dl Creatinine 0.56 L (0.6-1.2) mg/dl Est Cr Clr Drug Dosing 82.8 ml/min Est GFR ( Amer) 113.4 ml/min Est GFR (Non-Af Amer) 97.8 ml/min BUN/Creatinine Ratio 39.3 H (10-20) Glucose 112 H (70-99(Fasting)) mg/dl Calcium 8.5 (8.5-10.1) mg/dl Total Bilirubin 0.7 (0.2-1.0) mg/dl AST 34 (13-39) U/L ALT 40 (7-52) U/L Alkaline Phosphatase 85 (34-104) U/L Total Protein 7.2 (6.0-8.3) gm/dl Albumin 3.4 (3.4-5.0) gm/dl Globulin 3.8 (2.5-4.0) gm/dl Albumin/Globulin Ratio 0.9 (0.9-2) HIV-1 RNA copies/mL Pending HIV-1 RNA logcopies/mL Pending 05/17/22 Range/Units 06:14 WBC (4.8-10.8) K/ul RBC (3.93-5.22) M/uL Hgb (12.0-16.0) g/dl Hct (34.1-44.9) % MCV (80.0-100.0) fL MCH (25.0-34.0) pg MCHC (32.0-36.0) g/dL RDW Std Deviation (36.4-46.3) fL RDW Coeff of Ronnie (11.5-14.5) % Plt Count (130-400) K/uL MPV (9.4-12.3) fL Peripher Smr Path Cons Sodium (136-145) mmol/L Potassium (3.5-5.1) mmol/L Chloride (98-107) mmol/L Carbon Dioxide (21-32) mmol/L Anion Gap (3-11) BUN (6-23) mg/dl Creatinine (0.6-1.2) mg/dl Est Cr Clr Drug Dosing ml/min Est GFR ( Amer) ml/min Est GFR (Non-Af Amer) ml/min BUN/Creatinine Ratio (10-20) Glucose (70-99(Fasting)) mg/dl Calcium (8.5-10.1) mg/dl Total Bilirubin (0.2-1.0) mg/dl AST (13-39) U/L ALT (7-52) U/L Alkaline Phosphatase (34-104) U/L Total Protein (6.0-8.3) gm/dl Albumin (3.4-5.0) gm/dl Globulin (2.5-4.0) gm/dl Albumin/Globulin Ratio (0.9-2) HIV-1 RNA copies/mL HIV-1 RNA logcopies/mL 05/16/22 21:22 CT head/brain wo con Stat Hospital Course (1) Thrombocytopenia: Marine Izaguirre is a 67 y/o female with a PMHx of ITP with normal bone marrow biopsy which resolved with prednisone 25 years ago here for evaluation of petechial rash, epistaxis, and oral lesions in the setting of recent URI admitted for severe thrombocytopenia and started on high dose steroids now s/p IVIG x1 with improvement of Plt count now stable for discharge. #Immune Thrombocytopenia (ITP) flare in the setting of recent URI symptoms Patient previously treated for ITP with steroids. Normal bone marrow biopsy at t hat time. Presented with epistaxis, oral lesions, petechial rash. Patient has had URI symptoms for the last few days which is the likely trigger. Plts 3k at time of admit decreased to 1k despite high dose steroids. S/p IVIG 1 gm/kg per hematology with double digit response - Plts 17k, improved to 43k at time of discharge. Completed 4 days of dex 40 mg IV. No severe bleeding. CT Head negative for acute bleed. ITP work up includes HIV screening. B12 WNL. Empirically give folate 1 mg QD. Decision for need of prison treatment for ITP will be made outpatient. HIV screen pending. Recommend close f/u with PCP and hematology. #Elevated Liver Enzymes Patient had elevated LFTs on admit which have since normalized. Hold off on abdominal US for now. #Headache Patient notes having a headache. Likely a large tension GA component. Consider OMT outpatient (levator scapula and suboccipital). FENGI - Tolerating PO, Regular diet DVT ppx - No chemoprophylaxis given severe thrombocytopenia Code status - Full Dispo -d/c home Total Time Total Time Spent Total Time Spent (In Minutes): <30 Discharge Plan Discharge Items Patient Disposition: Home - Self-Care Reason For Visit: THROMBOCYTOPENIA, PURPURA AND PETECHIAE Discharge Diagnosis: ITP Activity: Per Instructions section Non-emergency contact: Primary Care Provider Call non-emergency contact if: your symptoms worsen and your temperature is above 101.5 Follow-up/Referrals: Aleksey Shea MD [Surgeon] - (APPOINTMENT REQUESTED) Ascencion Espinal DO [Resident] - 05/25/22 2:10 pm (OMT TCM) Diet: Regular Addtl Attending Provider Instructions: You were admitted to the hospital for thrombocytopenia. You were treated with high dose steroids and IVIG. A discharge summary will be sent to your primary care physician to ensure continuity of care. Please bring this discharge summary with you to your next office appointment so that your provider can review it at that time. Follow-up appointments: We have requested a follow-up appointment with your primary care physician within one week of discharge. Appointment scheduled with Dr. Espinal on 05/25 2:10 pm for a hospital follow up and OMT. If this does not work for you call the office to reschedule [phone]. We have requested a follow-up appointment with hematology. Please call their office if you do not hear from them. Medications: Your medication list has been reviewed and reconciled upon discharge to ensure accuracy and continuity of care. An updated list of all your medications is included with your hospital discharge paperwork. Please review this list closely, and make note of any changes. We sent a new medication called folate to your pharmacy. Take folate 1 mg every day. We sent a new medication called b 12 to your pharmacy. Take B12 1000 mcg every day. If you have any issues filling these prescriptions, please call [phone] and ask to leave a message for Dr. Eliane. Take your medications as instructed; do not skip a dose of your medicines. Make sure all of your doctors know every medicine you are taking (including [id number] medicines, vitamins, and supplements). Call your primary care provider before taking any new medicines (including over- the- counter medicines, vitamins, and supplements), because some of these may interact with your current medications, or may make your symptoms worse. Tell your primary care provider if you cannot afford your medications. CONTACT YOUR PRIMARY CARE PROVIDER if you experience any of the following: Bruising or bleeding Difficulty following your treatment plan, or difficulty taking medications CALL 911 OR GO TO THE EMERGENCY DEPARTMENT if you experience any of the follow ing: Sudden, severe abdominal pain or nausea/vomiting Severe chest pain, or chest pain that radiates (moves) to your jaw or arm Sudden, severe shortness of breath or difficulty breathing Bruising or bleeding Thank you for allowing us to participate in your care Pending Studies at Discharge: Yes Studies:: HIV Stand-Alone Forms: My [facility] Crude Area, Smoking Cessation Medications and DC Order Prescriptions: New folic acid 1 mg Tablet 1 mg PO QAM Qty: 60 0RF cyanocobalamin (vitamin B-12) 1,000 mcg tablet 1,000 mcg PO DAILY Qty: 60 0RF Continued Excedrin Migraine 250-250-65 mg Tablet 1 tab PO Q6H PRN (Reason: Pain) polyethylene glycol 3350 [ClearLax] 17 gram powder in packet 17 g PO DAILY acetaminophen [Tylenol Extra Strength] 500 mg Tablet 1,000 mg PO DIRECTED PRN (Reason: Pain) ibuprofen [Advil] 200 mg Tablet 400 mg PO DIRECTED PRN (Reason: Pain) Discharge Orders: Discharge Order (Routine); Ordered 05/19/22 Ordered By: Meme Elaine Admission Data Admit Date/Time: 05/16/22 23:58 Attending Provider: Gagan Lu Admit Provider: Yoana Goins Primary Care Provider: Lisa Moise Other Providers: Yoana Goins ; Aleksey Shea ; Amber Dillon ; Derek Santos. ; Harry Vuong Other Interventions: Discharge Summary Assessment (RN) Last Done: 05/19/22 13:01 Supervising Physician Co-Signing Physician Notes I personally examined the patient and verified all ram points of history and exam, discussed case, and agree with decision making with Dr Elaine. feeling fine. working on embroidery for grandchild again. no bleeding/bruising. would like to go home vitals noted nad heent nc at mmm breathing unlabored no accessory muscles good effort skin no rashes no pallor or icterus recurrent ITP - improving. steroids day 4 today, had IVIG on 05/17. platelets improving. safe/stable for discharge and outpt f/u Resident Activity Tracking Resident Involvement: Resident Care Provided Care Provided: Adult Hospital Medicine
[2022-05-19] MEDS: FOLIC ACID 1 MG TAB PO SCH (07:50)
--- NOTE | 2022-05-19 08:12 | Hospitalist Progress Note ---
Date of Service May 19, 2022 Assessment & Plan (1) Acute ITP: Plan: Vital significantly improved. Also note that the B12 is in the low end of the normal range. Would suggest that she needs to complete 4 days of dexamethasone at 40 mg daily but can do so as an outpatient if otherwise stable. Would add vitamin B12 1000 mcg orally and continue her on her folic acid supplement at discharge. I will ask that she be scheduled to see me this Wednesday in [facility] at noon, staff is to be making those arrangements. Plan Can discharge once stable but need to assure that she completes a total of 4 days of dexamethasone at 40 mg daily, continues on folic acid supplements and starts B12 supplements as above. I will make arrangements for CBC, BMP, and follow-up visit with me this Wednesday at noon. Admission and Anticipated Discharge Date Admission Date: May 16, 2022 Subjective Patient admitted with ITP Physical Exam Physical Exam: VSS Results & Data Results & Data ([facility]) Vital Signs (Past 12 Hours) Vital Signs Temp Pulse Pulse Resp BP Pulse Ox O2 Del Method 05/19/22 07:10 36.8 C 66 20 109/59 L 97 Room Air 05/19/22 04:00 36.9 C 65 18 103/62 97 Room Air 05/19/22 01:33 51 L 05/19/22 00:00 36.6 C 60 18 104/60 98 Room Air Laboratory Results Abnormal lab results 05/19/22 05/19/22 Range/Units 04:09 04:09 WBC 11.39 H (4.8-10.8) K/ul RBC 3.74 L (3.93-5.22) M/uL Hgb 11.5 L (12.0-16.0) g/dl Hct 33.7 L (34.1-44.9) % Plt Count 43 L D (130-400) K/uL Creatinine 0.56 L (0.6-1.2) mg/dl BUN/Creatinine Ratio 39.3 H (10-20) Glucose 112 H (70-99(Fasting)) mg/dl PG Care Time/CCT Total # of Minutes Spent Total Time Spent with Patient: Total time spent is greater than 50% in coordination of care (as documented) at patient's floor/unit and/or counseling patient: Coding Level of Care Code None Diagnoses Acute ITP D69.3
[2022-05-19] MEDS: ACETAMINOPHEN 500 MG TAB PO PRN (10:26)
[2022-05-19] MEDS: dexAMETHasone 40 MG in DEXTROSE 5% 25 ML IV SCH (12:54)
--- NOTE | 2022-05-19 20:07 | Billing Data ---
Date of Service May 19, 2022 Coding Level of Care Code HOSP INP/OBS DISCH 30 MIN/LESS
[2022-05-20 10:32] LABS: HIV 1 RNA PCR Copies/ML NOT DETECTED copies/mL (NOT DETECTED); HIV-1 RNA Log Copies/mL NOT DETECTED (NOT DETECTED)
== END 2022-05-19 15:37 | disposition home or self-care (01) | DRG 813 ==
LOC: ED 19:43 → SUATTDRO 23:58 → 4W 23:58